=== PATIENT | female | born 1960 | race Caucasian/White ===

== ENCOUNTER → 2018-04-19 09:33 | Outpatient (CLI) | payer BC, SELFPAY ==
[2018-04-19 12:23] LABS: Absolute Lymphocyte Count 1.96 X10^3/ul (0.83-4.51); Absolute Neutrophil Count 3.4 X10^3/uL (2.0-7.7); Basophil# 0.03 X10^3/uL; Basophil% 0.5 % (0-1); Eosinophil# 0.15 X10^3/uL; Eosinophils% 2.5 % (0-5); Hematocrit 44.1 % (37-47); Hemoglobin 14.5 g/dl (12.0-15.0); Lymphocyte # 1.96 X10^3/ul (4.0); Mean Corp Hgb Conc 32.9 g/gl (32-36); Mean Corpuscular Hgb 27.7 pg (27.0-32.0); Mean Corpuscular Volume 84.3 fL (81-99); Mean Platelet Vol. 10.9 fl (6.2-12.0); Monocyte% 6.7 % (0-10); Neutrophil % 57.3 % (47-70); Platelet Count 237 K/mm3 (150-450); RBC Distribution Width SD 46.3 fl (35.1-43.9); Red Blood Count 5.23 M/mm3 (4.2-5.4); White Blood Count 5.9 K/mm3 (4.4-11.0)
[2018-04-19 12:25] LABS: POSITIVE COUNT NO; POSITIVE DIFFERENTIAL NO; POSITIVE MORPHOLOGY NO
[2018-04-19 12:48] LABS: Anion Gap 10 (5-15); BUN 22 mg/dL (7-18); BUN/Creat Ratio 25.3 RATIO (10-20); Calcium,Total 8.8 mg/dL (8.5-10.1); Chloride 108 mmol/L (98-107); Cholesterol 208 mg/dL (200); Creatinine, Serum 0.87 mg/dL (0.55-1.02); EST Glomerular Filtration Rate 71 mL/min (>60); Est Glom Filt Rate - Afr Amer 86 mL/min (>60); Glucose 97 mg/dL (74-106); High Density Lipoprotein 46 mg/dL; Potassium 4.2 mmol/L (3.5-5.1); Sodium Level 141 mmol/L (136-145); Thyroid Stim Hormone (TSH) 2.01 uIU/mL (0.358-3.74); Triglycerides 120 mg/dL; Very Low Density Lipoprotein 24 mg/dL (5-40)
== END ==
PROVIDERS: Family Provider Family Medicine; PCP Family Medicine; Visit Provider Family Medicine
DX: E78.00 Pure hypercholesterolemia, unspecified (principal); R53.83 Other fatigue; R94.6 Abnormal results of thyroid function studies
CPT/HCPCS: 36415; 80048; 80061; 84443; 85025

== ENCOUNTER → 2018-09-23 12:55 | Outpatient (CLI) | payer BC, SELFPAY ==
--- NOTE | 2018-09-23 12:58 | BI_ITS ---
MAMMOGRAPHY - BILATERAL SCREENING 3-D CHANDAN SYNTHESIS REASON FOR EXAM: Female, 58 years old. Bilateral Screening 3-D tomosynthesis PERTINENT HISTORY: Personal history of breast cancer at age 51 status post lumpectomy. History of left excisional biopsy. TECHNIQUE: 2-D mammograms and 3-D Chandan synthesis of the breast (s) were performed. CAD was performed. COMPARISON: August 17, 2017, May 06, 2016 FINDINGS: The breast composition is composed of scattered fibroglandular density. There are stable normal-appearing lymph nodes in both axillae. Scattered benign calcifications are seen. No dense spiculated masses or suspicious microcalcifications are identified. No architectural distortion is identified. There is no skin thickening or retraction. There has been no significant change since the prior study. BI/SCREENING MAMM (CAD), BILAT IMPRESSION: No mammographic signs of malignancy. Routine yearly mammograms recommended. ASSESSMENT CATEGORY: BIRADS Category 2: Benign. A letter regarding these results will be sent to the patient by the facility within 30 days. FOLLOW UP RECOMMENDATION: Yearly follow up mammogram recommended. (A) Approximately 10% of breast cancers are not detected by mammography. A normal mammogram should not delay biopsy of a clinically suspicious abnormality. Electronically Signed: Sai Dickerson MD at 11:15 EST , Service support ,
== END ==
PROVIDERS: Family Provider Family Medicine; PCP Family Medicine; Visit Provider Nurse Practitioner Women's Health
DX: Z12.31 Encounter for screening mammogram for malignant neoplasm of breast (principal)
CPT/HCPCS: 77063; 77067

== ENCOUNTER → 2018-10-25 11:26 | Outpatient (CLI) | payer BC, SELFPAY ==
[2018-10-03 11:35] VITALS: BMI 28.8
--- NOTE | 2018-10-25 11:36 | RAD_ITS ---
STUDY: X-RAY - LEFT KNEE REASON FOR EXAM: Female, 58 years old. Knee pain. TECHNIQUE: 4 view(s) of the knee. COMPARISON: None. FINDINGS: Normal visualized distal femur. Normal visualized proximal tibia and fibula. Normal proximal tibiofibular articulation. There is mild degenerative arthrosis of the medial femorotibial compartment. Normal lateral femorotibial compartment. There is mild degenerative arthrosis of the patellofemoral articulation. There is lateral patellar tilt. The soft tissue structures are unremarkable. RAD/Knee 4 or More Views IMPRESSION: Mild degenerative changes. Electronically Signed: Scarlet Dorsey MD at 22:34 EST Tel , Service support ,
== END ==
PROVIDERS: Family Provider Family Medicine; PCP Family Medicine; Referring Provider Family Medicine; Visit Provider Family Medicine
DX: M25.562 Pain in left knee (principal)
CPT/HCPCS: 73564

== ENCOUNTER 2019-01-04 09:30 | Outpatient (RCR) | payer BC, SELFPAY ==
[2018-10-03 11:35] VITALS: BMI 28.8
--- NOTE | 2018-11-04 16:51 | HP.PTEVAL_ITS ---
Patient's Visit Information MICHELLE HERNÁNDEZ is a 58 year old F referred to Physical Therapy by Nadeem Sutton MD with a diagnosis of LEFT KNEE PAIN. SUSPECT SMALL POSTEROMEDIAL MENISCAL TEAR. WEAK QUAD.. Date of Evaluation: 11/04/18 Physical Therapist: Stephania Wilde, PT, Cert MDT - Visit Plan Frequency: 2-3x /Week Duration: 4-6 Weeks Plan: MODALITIES NEEDED FOR LEFT KNEE PAIN. POSTURE CORRECTION/STRENGTHENING, INSTRUCTION IN APPROPRIATE BODY MECHANICS AND ACTIVITY MODIFICATIONS. DLS STARTING WITH A NEUTRAL SPINE PROGRESSING ROM TOLERATED. MAURY LE ROM, STRETCHING AND STRENGTHENING. HEP INSTRUCTION. - Subjective Findings: Work/Leisure: [employer]. ABOUT 25 HOURS A WEEK. MOSTLY SITTING. 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 Disability: NO. Present symptoms: LEFT LATERAL AND POSTERIOR KNEE PAIN. LEFT THIGH AND CALF PAIN. PATIENT DENIES NUMBNESS AND TINLGING. NO FOOT SX'S. MAYBE SOME LEFT HIP PAIN. NO LOW BACK PAIN. Present since: AUG 28 2018 - BUT ABOUT A MONTH PRIOR (JUL 2018) MAURY KNEES WERE FEELING UNSTABLE AND HAVING SOME SHARP PAINS WITH SHIFTING IN KNEES. Pain Scale: WORST 8/10, LEAST 1/10. Currently: 1/10. CURRENTLY STAYING THE SAME. Commenced as a result of: TWISTING TO GET LUGGAGE ON AIRPLANE. Symptoms at onset: MAURY KNEE PAIN AND INSTABILITY. Worse: USING LEFT LEG TO BRACE, ANY STRANGE TURNING OR TWISIING, WALKING ON TREADMILL, CARRYING THE GRANDBADIES, WALKING ON UNEVEN GROUND, GETTING IN AND OUT OF CAR, BALANCING ON LLE - SHAVING LEGS, PROLONGED SITTING CAUSES BACK TIGHTNESS AND SOMETIMES KNEE PAIN, CROSSING LEGS, INITIATING GAIT AFTER SITTING. Better: ICE, ALEVE, CHANGE OF POSITION,. Disturbed sleep: YES. Previous history/Previous treatment: PT FOR TORN UNREPAIRED ACL RIGHT ABOUT 20 YEARS AGO FROM SKIING ACCIDENT. NO OTHER RECENT KNEE HISTORY EXCEPT DRAINING OF LEFT BAKERS CYST 10/31/[address] SUTTON - MAYBE TEMPORARY RELIEF. HISTORY OF LOW BACK ISSUES FOR ABOUT 20 YEARS - EPISODIC LBP SINCE. DX WITH DDD. WHENEVER GETS TIGHT IN LOW BACK GOES TO CHIROPRACTOR - 20 YEAR HISTORY OF CHIROPRACTIC ADJUSTMENTS OFF AND ON. ALSO HISTORY OF HEEL SPURS THAT PATIENT RELATES TO HER LOW BACK PROBLEMS. NO BACK OR KNEE SURGERY, NO BACK OR KNEE INJECTIONS, NO BACK PT. HISTORY OF LEFT LE SCIATICA. Coughing/sneezing/straining: NEGATIVE. Gait: PATIENT REPORTS SHE IS WALKING MORE CAUSIOUSLY AND TAKING SHORTER STEPS. NO AD'S. MORE DEPENDENT ON HR'S WITH STEPS. Difficulty initiating urinatin: NO. Accidents: FALL SKIING 20 YEARS AGO. Unexplained weight loss: NO. Imaging: LEFT KNEE X-RAY SHOWING ARTHRITIS - MILD DEGENERATIVE CHANGES - SEE [facility] EMR. NO RECENT LUMBAR IMAGING. PMH: HYPOTHROIDISM. Recent major surgery: HYSTERECTOMY, LUMPECTOMY FOR PRECANCEROUS TUMOR - NO FURTHER TREATMENT. PLOF (Prior Level of Function): UNLIMITED. GOAL: TO BE ABLE TO HIKE ETC IN [place] IN DECEMBER 2018 - Objective Sitting/Standing Posture: POOR. Lordosis: REDUCED. Lateral shift: NO. Relevant shift: N/A. Active Correction of posture: BETTER. REPRODUCIBLE DECREASE OF LLE SX'S IN BACK AND SIDE OF LEFT KNEE WITH POSTURE CORRECTION. Other Observations: Motor deficit: RIGHT LE 5/5 WITH MMT EXCEPT HIP 4/5. LEFT: HIP 4-/5, KNEE EXT 3-/5, KNEE FLEX 4-/5, ANKLE 5/5, EHL 5/5. Sensory deficit: DECREASED LIGHT TOUCH LEFT LATERAL THIGH, LEG AND FOOT COMPARED TO RIGHT. ROM deficit: FULL MAURY KNEE ROM EXCEPT LEFT KNEE EXT -2 TO 3 DEG. Reflexes: 2/3 MAURY LE'S. Dural Signs: POSITIVE LLE. Lumbar mvmt loss: flex - NIL - LEFT KNEE CATCH ON RETURN. ext - MIN. R SG - MIN. L SG - MOD - C/O INCREASED LLE PAIN/PRESSURE. Core strength: POOR. Palpation: MILD TENDERNESS [id number] REGION. MILD POSTERIOR LEFT KNEE SWELLING. NO ACUTE TENDERNESS WITH LEFT KNEE PALPATION - Goals Goal 1:: DECREASE C/O LEFT KNEE PAIN Goal Time Frame: 4-6 Weeks Goal 2:: IMPROVE STANDING, WALKING, BENDING, LIFTING, TWISTING, ADL, WORK AND SLEEP FUNCTION Goal Time Frame: 4-6 Weeks Goal 3:: INSTRUCT IN PROPHYLAXIS Goal Time Frame: 4-6 Weeks - Rehabilitation Potential Rehabilitation Potential: Fair - Anticipated Interventions Patient/Client Instruction: Educate patient on: Condition, Plan of Care, Risk Factors, Benefits of Fitness Program For the Purpose of:: To improve self management Therapeutic Exercise to Include: Strength training, Body mechanics, Postural training, Flexibilty training, Gait and locomotor training, Passive ROM, Active ROM, Dynamic Lumbar Stabilization For the Purpose of:: To decrease pain, To increase ROM, To improve muscle performance and motor function, To increase tolerance to activity/condition/position, To improve ability of physical actions for home/community/work/leisure, To improve gait and locomotor functions TENS: Yes Cryotherapy (ice pack, ice massage): Yes Thermo therapy (hot pack): Yes Ultrasound (thermal/non thermal): Yes For the Purpose of:: To decrease pain, To decrease swelling/inflammation, To increase ROM, To improve nutrient delivery to tissue Thank you for the opportunity to evaluate your patient. For Medicare and Medicare HMO plans, please review the plan of care and approve it. It will need to be FAXED BACK to us at [phone] for Medicare purposes. For Medicare only, by signing this I certify the plan of care. Please let me know if there are questions or concerns regarding this plan of care. Physician Signature: Date:
--- NOTE | 2018-12-05 17:17 | HP.PTREVAL_ITS ---
Nadeem Sutton MD, It has been my pleasure to treat MICHELLE HERNÁNDEZ over the last 12 visits for LEFT KNEE PAIN. SUSPECT SMALL POSTEROMEDIAL MENISCAL TEAR. WEAK QUAD.. Please see the progress note below for an update on the physical therapy plan of care! Subjective: PATIENT REPORTS HER KNEE HASN'T SLIPPED IN TWO WEEKS AND SHE IS GAINING CONFIDENCE IN HER KNEE. MUCH LESS CONSTANT LEFT LATERAL KNEE PAIN. PAIN IN THE BACK OF HER KNEE IS BETTER TOO AND COMES AND GOES NOW. PATIENT REPORTS THAT IT IS HUGE THAT SHE CAN GET IN AND OUT OF THE CAR BETTER AND GETTING UP FROM HER DESK AT WORK IS BETTER. THERE IS STILL PAIN BEHIND THE KNEE AND TO THE SIDE WITH ACTIVITY. SOMETIMES PAIN AND TIGHTNESS IN CALF WITH A LOT OF ACTIVITIY TOO. TIGHTNESS IN THIGH CONTINUES TOO. SHE REPORTS SHE CAN NOT RUN OR WALK ON ANYTHING UNEVEN FOR FEAR OF KNEE GIVING OUT. HAS NOT BEEN DOING BARN CHORES. CAN NOT DRIVE MORE THAN AN HOUR AND 45 MINUTES - EVERYTHING TIGHTENED UP AND THE KNEE HURT. NO SWELLING IN KNEE THIS MORNING AND SLEPT GOOD LAST NIGHT. PATIENT REPORTS SHE WANTS TO GET HER STRENGTH BACK IN HER LEG. PATIENT REPORTS IT IS EASY TO ENGAGE HER CORE NOW AND USE GOOD POSTURE. PATIENT REPORTS WHEN SHE ENGAGES HER CORE AND CORRECTS HER POSTURE SHE FEELS BETTER IN HER KNEES AND FEET. SHE REPORTS HER CORE STABILITY IS BETTER. PATIENT REPORTS SHE IS PAINFREE 75% OF THE DAY IN HER BACK AND LEGS INCLUDING KNEE. INCREASED PAIN IN THE EVENING AND BETTER IN THE MORNING. SHE REPORTS 30% MORE CONFIDENCE IN HER KNEE. PATIENT REPORTS THE POOL WAS CHALLENGING AND SHE LIKED IT. Objective/Function: THIS PATIENT IS MAKING PROGRESS TOWARD ALL SET PT GOALS BUT STILL HAS SIGNIFICANT WEAKNESS IN THE LLE AND IS STILL SIGNIFICANTLY LIMITING HER NORMAL DAILY ACTIVITIES. RECOMMEND FOLLOW UP WITH DR. SUTTON FOR RE- ASSESSMENT AND FURTHER PT PLAN BELOW. UPON EXAM TODAY: Motor deficit: RIGHT LE 5/5 WITH MMT EXCEPT HIP 4/5. LEFT: HIP 4/5, KNEE EXT 4-/5, KNEE FLEX 5/5, ANKLE 5/5, EHL 5/5. Sensory deficit: PATIENT IS REPORTING INCREASED SENSATIVITY OF THE LEFT LATERAL THIGH, LEG AND FOOT COMPARED TO RIGHT TODAY. ROM deficit: FULL MAURY KNEE ROM AND FULL LEFT KNEE EXT NOW. Dural Signs: NEGATIVE MAURY LE'S. Lumbar mvmt loss: flex - NIL - STRETCH LEFT KNEE. ext - MIN. R SG - MIN. L SG - MOD - C/O INCREASED LLE PAIN/PRESSURE. Core strength: POOR. Palpation: NO TENDERNESS [id number] REGION TODAY. MILD POSTERIOR LEFT KNEE TENDERNESS AND SWELLING. Plan Plan: MODALITIES NEEDED FOR LEFT KNEE PAIN. POSTURE CORRECTION/STRENGTHENING, INSTRUCTION IN APPROPRIATE BODY MECHANICS AND ACTIVITY MODIFICATIONS. DLS STARTING WITH A NEUTRAL SPINE PROGRESSING ROM TOLERATED. MAURY LE ROM, STRETCHING AND STRENGTHENING. HEP INSTRUCTION. Goals Goal 1:: DECREASE C/O LEFT KNEE PAIN Goal Time Frame: 4-6 Weeks Goal Progress: Progressing Goal 2:: IMPROVE STANDING, WALKING, BENDING, LIFTING, TWISTING, ADL, WORK AND SLEEP FUNCTION Goal Time Frame: 4-6 Weeks Goal Progress: Progressing Goal 3:: INSTRUCT IN PROPHYLAXIS Goal Time Frame: 4-6 Weeks Goal Progress: Progressing Anticipated Interventions Patient/Client Instruction: Educate patient on: Condition, Plan of Care, Risk Factors, Benefits of Fitness Program For the Purpose of:: To improve self management Therapeutic Exercise to Include: Strength training, Body mechanics, Postural training, Flexibilty training, Gait and locomotor training, Passive ROM, Active ROM, Dynamic Lumbar Stabilization For the Purpose of:: To decrease pain, To increase ROM, To improve muscle performance and motor function, To increase tolerance to activity/condition/position, To improve ability of physical actions for home/community/work/leisure, To improve gait and locomotor functions TENS: Yes Cryotherapy (ice pack, ice massage): Yes Thermo therapy (hot pack): Yes Ultrasound (thermal/non thermal): Yes For the Purpose of:: To decrease pain, To decrease swelling/inflammation, To increase ROM, To improve nutrient delivery to tissue Please do not hesitate to contact me at [phone] by phone or if you have questions or concerns regarding this new plan of care! Sincerely, Stephania Wilde, PT, Cert MDT
--- NOTE | 2019-01-04 10:27 | HP.PTDCSUM_ITS ---
HP - PT D/C Summary It has been my pleasure to treat MICHELLE HERNÁNDEZ under orders from Nadeem Sutton MD, for the diagnosis of LEFT KNEE PAIN. SUSPECT SMALL POSTEROMEDIAL MENISCAL TEAR. WEAK QUAD. for a total of 19 visit(s). Discharge Date: 01/04/19 Please see the following information for a summary of their discharge status. - Subjective Subjective: PATIENT REPORTS HER STRENGTH HAS IMPROVED DRASTICALLY AND SHE IS ABOUT 90% BACK TO NORMAL EXCEPT TWEAKING HER BACK WHICH IS NORMAL FOR HER. PATIENT IS HAPPY TO REPORT SHE IS ABLE TO PUSH OFF OF HER LEFT LEG KNOW WITHOUT PAIN. RG'T WITH DR. SUTTON NEXT WEEK FOR KNEE. PATIENT REPORTS SHE HAS HER BAND AND CAN DO HER HOME EX'S NOW AND DOES NOT THINK SHE IS GOING TO GET A MEMBERSHIP YET. ALSO KNOWS HER POOL EX'S. - Pain LOW BACK Pain Intensity (Out of 10): 4 LEFT THIGH Pain Intensity (Out of 10): 0 LEFT KNEE Pain Intensity (Out of 10): 0 LEFT CALF Pain Intensity (Out of 10): 0 L hip Pain Intensity (Out of 10): 0 - Overall Improvement % Improvement: 90 - Objective Objective/Function: THIS PATIENT HAS MADE GREAT PROGRESS TOWARD ALL SET PT GOALS. UPON EXAM TODAY: Motor deficit: RIGHT LE 5/5 WITH MMT EXCEPT HIP 4/5. LEFT: HIP 4/5, KNEE EXT 4/5, KNEE FLEX 5/5, ANKLE 5/5. Sensory deficit: MILD DECREASED LIGHT TOUCH OF LEFT LATERAL THIGH AND KNEE REPORTED WITH TESTING TODAY. ROM deficit: FULL MAURY KNEE ROM AND FULL LEFT KNEE EXT. Dural Signs: NEGATIVE MAURY LE'S. Lumbar mvmt loss: flex - MIN - A LITTLE TIGHT. ext - MIN. R SG - MIN. L SG - MIN. Core strength: FAIR - Goals Goal 1:: DECREASE C/O LEFT KNEE PAIN Goal Progress: Goal Met Goal 2:: IMPROVE STANDING, WALKING, BENDING, LIFTING, TWISTING, ADL, WORK AND SLEEP FUNCTION Goal Progress: Goal Met Goal 3:: INSTRUCT IN PROPHYLAXIS Goal Progress: Progressing - Plan Plan: D/C TO [facility] AND FOLLOW UP WITH PATIENT AGREEABLE - D/C Information If there are questions or concerns regarding this patient's physical therapy, please feel free to call me at [phone]. Thank you for the referral of this patient. Sincerely, Stephania Wilde, PT, Cert MDT
== END 2019-01-04 18:59 | disposition home or self-care (01) ==
LOC: PT 09:30
PROVIDERS: Family Provider Family Medicine; PCP Family Medicine; Referring Provider Family Medicine; Visit Provider Family Medicine
DX: M25.562 Pain in left knee (principal); M62.81 Muscle weakness (generalized)
CPT/HCPCS: 97110; 97113; 97162; 97530

== ENCOUNTER → 2019-03-14 10:36 | Outpatient (CLI) | payer BC, SELFPAY ==
[2018-10-03 11:35] VITALS: BMI 28.8
[2019-03-14 13:06] LABS: Anion Gap 13 (5-15); BUN 12 mg/dL (7-18); BUN/Creat Ratio 14.4 RATIO (10-20); Calcium,Total 8.9 mg/dL (8.5-10.1); Chloride 106 mmol/L (98-107); Creatinine, Serum 0.83 mg/dL (0.55-1.02); EST Glomerular Filtration Rate 75 mL/min (>60); Est Glom Filt Rate - Afr Amer 90 mL/min (>60); Glucose 99 mg/dL (74-106); Potassium 4.7 mmol/L (3.5-5.1); Sodium Level 140 mmol/L (136-145); Thyroid Stim Hormone (TSH) 1.06 uIU/mL (0.358-3.74)
== END ==
PROVIDERS: Family Provider Family Medicine; PCP Family Medicine; Referring Provider Family Medicine; Visit Provider Family Medicine
DX: I10 Essential (primary) hypertension (principal); E03.9 Hypothyroidism, unspecified
CPT/HCPCS: 36415; 80048; 84443

== ENCOUNTER → 2019-09-25 09:55 | Outpatient (CLI) | payer BC, SELFPAY ==
[2018-10-03 11:35] VITALS: BMI 28.8
--- NOTE | 2019-09-25 09:56 | BI_ITS ---
MAMMOGRAPHY - BILATERAL SCREENING 3-D TOMOSYNTHESIS REASON FOR EXAM: Female, 59 years old. P/H AGE 51, STOPPED HRT IN 2011 4 YR TOTAL USE -- GAINED 10# -- LT LUMPECTOMY 2011 NO F/U TX, PT C/O SORENESS X 2-3 MONTHS LOWER LATERAL QUAD -- LT EXC BX 2009 PERTINENT HISTORY: No significant family history. TECHNIQUE: 2-D mammograms and 3-D Tomosynthesis of the breast (s) were performed. CAD was performed. COMPARISON: September 23, 2018. FINDINGS: The breast composition is composed of scattered fibroglandular density. Scattered benign calcifications are seen. No dense spiculated masses or suspicious microcalcifications are identified. No architectural distortion is identified. There is no skin thickening or retraction. There has been no significant change since the prior study. BI/SCREEN MAMM (CAD) W/CHANDAN BILAT IMPRESSION: No mammographic signs of malignancy. Routine yearly mammograms recommended. ASSESSMENT CATEGORY: BIRADS Category 1: Negative. A letter regarding these results will be sent to the patient by the facility within 30 days. FOLLOW UP RECOMMENDATION: Yearly follow up mammogram recommended. (A) Approximately 10% of breast cancers are not detected by mammography. A normal mammogram should not delay biopsy of a clinically suspicious abnormality. Electronically Signed: Jesus Prado MD at 12:11 EST , Service support ,
== END ==
PROVIDERS: Family Provider Family Medicine; PCP Family Medicine; Referring Provider Nurse Practitioner Women's Health; Visit Provider Nurse Practitioner Women's Health
DX: Z12.31 Encounter for screening mammogram for malignant neoplasm of breast (principal)
CPT/HCPCS: 77063; 77067

== ENCOUNTER → 2020-02-06 09:34 | Outpatient (CLI) | payer BC, SELFPAY ==
[2019-10-19 08:39] VITALS: BMI 28.8
[2020-02-06 12:18] LABS: Cholesterol 249 mg/dL (200); High Density Lipoprotein 37 mg/dL; Thyroid Stim Hormone (TSH) 1.63 uIU/mL (0.358-3.74); Triglycerides 287 mg/dL; Very Low Density Lipoprotein 57 mg/dL (5-40)
== END ==
PROVIDERS: PCP Family Medicine; Visit Provider Family Medicine
DX: E78.00 Pure hypercholesterolemia, unspecified (principal); E03.9 Hypothyroidism, unspecified
CPT/HCPCS: 36415; 80061; 84443

== ENCOUNTER 2020-12-06 14:11 | Outpatient (RCR) | payer BC, SELFPAY ==
[2019-10-19 08:39] VITALS: BMI 28.8
[2020-12-06] MEDS: COVID-19 VACC, MRNA(PFIZER)/PF 30 MCG/0.3 ML SYRINGE IM (15:14)
[2020-12-27] MEDS: COVID-19 VACC, MRNA(PFIZER)/PF 30 MCG/0.3 ML SYRINGE IM (15:03)
== END 2020-12-06 23:59 ==
LOC: IMMUN 14:11
PROVIDERS: PCP Family Medicine; Referring Provider Family Medicine; Visit Provider Family Medicine
DX: Z23 Encounter for immunization (principal)
CPT/HCPCS: 0001A; 0002A; 91300

== ENCOUNTER → 2021-02-05 10:08 | Outpatient (CLI) | payer BC, SELFPAY ==
[2019-10-19 08:39] VITALS: BMI 28.8
[2021-02-05 12:51] LABS: T4 Free Direct 1.04 ng/dL (0.76-1.46); Thyroid Stim Hormone (TSH) 1.55 uIU/mL (0.358-3.74)
== END ==
PROVIDERS: PCP Family Medicine; Referring Provider Family Medicine; Visit Provider Family Medicine
DX: E03.9 Hypothyroidism, unspecified (principal)
CPT/HCPCS: 36415; 84439; 84443

== ENCOUNTER → 2021-02-07 10:35 | Outpatient (CLI) | payer BC, SELFPAY ==
[2019-10-19 08:39] VITALS: BMI 28.8
--- NOTE | 2021-02-07 10:35 | BI_ITS ---
MAMMOGRAPHY - BILATERAL SCREENING REASON FOR EXAM: Female, 60 years old. Routine annual screening examination. PERTINENT HISTORY: Personal history of breast cancer. Prior left lumpectomy. TECHNIQUE: Digital bilateral breast chandan (3D mammographic acquisition) in the CC and MLO projections. 2-D mediolateral oblique (MLO) and craniocaudad (CC) views of both breasts were obtained. CAD: Full Field Digital Mammography with Computer Added Detection was performed. COMPARISON: Comparison is made with prior study dated 09/25/2019 and 09/23/2018. FINDINGS: Breast Composition: The breasts are heterogeneously dense, which may obscure small masses. There are no dominant masses or suspicious calcifications. The patient status post lumpectomy in the retroareolar region of the left breast. Stable postoperative changes. Stable benign-appearing bilateral axillary lymph nodes. No other significant abnormalities are identified. There has been no significant change since the prior study. BI/SCRN MAMM (CAD)W/CHANDAN BILAT IMPRESSION: Stable bilateral screening mammogram. Yearly follow-up mammogram recommended. (A) ASSESSMENT CATEGORY: BIRADS Category 2: Benign. A letter regarding these results will be sent to the patient by the facility within 30 days. Approximately 10% of breast cancers are not detected by mammography. A normal mammogram should not delay biopsy of a clinically suspicious abnormality. [id number] Electronically Signed: Mayito Del Rosario MD at 12:19 EDT , Service support ,
== END ==
PROVIDERS: PCP Family Medicine; Referring Provider Obstetrics & Gynecology; Visit Provider Obstetrics & Gynecology
DX: Z12.31 Encounter for screening mammogram for malignant neoplasm of breast (principal)
CPT/HCPCS: 77063; 77067

== ENCOUNTER → 2021-08-11 09:53 | Outpatient (CLI) | payer BC, OTHER, SELFPAY ==
[2021-08-11 12:26] LABS: Anion Gap 5 (5-15); BUN 13 mg/dL (7-18); BUN/Creat Ratio 13.6 RATIO (10-20); Calcium,Total 9.4 mg/dL (8.5-10.1); Chloride 107 mmol/L (98-107); Cholesterol 239 mg/dL (200); Creatinine, Serum 0.96 mg/dL (0.55-1.02); EST Glomerular Filtration Rate 63 mL/min (>60); Est Glom Filt Rate - Afr Amer 76 mL/min (>60); Glucose 105 mg/dL (74-106); High Density Lipoprotein 38 mg/dL; Potassium 4.1 mmol/L (3.5-5.1); Sodium Level 138 mmol/L (136-145); Triglycerides 228 mg/dL; Very Low Density Lipoprotein 46 mg/dL (5-40)
== END ==
PROVIDERS: PCP Family Medicine; Referring Provider Family Medicine; Visit Provider Family Medicine
DX: R73.01 Impaired fasting glucose (principal); E78.00 Pure hypercholesterolemia, unspecified
CPT/HCPCS: 36415; 80048; 80061

== ENCOUNTER → 2022-02-09 | Outpatient (CLI) | payer OTHER, SELFPAY ==
--- NOTE | 2022-02-09 10:27 | BI_ITS ---
MAMMOGRAPHY - BILATERAL SCREENING REASON FOR EXAM: Female, 61 years old. Routine annual screening examination. PERTINENT HISTORY: Personal history of breast cancer. Prior left lumpectomy. TECHNIQUE: Digital bilateral breast chandan (3D mammographic acquisition) in the CC and MLO projections. 2-D mediolateral oblique (MLO) and craniocaudad (CC) views of both breasts were obtained. CAD: Full Field Digital Mammography with Computer Added Detection was performed. COMPARISON: Comparison is made with prior study dated 02/07/2021 and 09/25/2019. FINDINGS: Breast Composition: The breasts are heterogeneously dense, which may obscure small masses. There are no dominant masses or suspicious calcifications. Once again, the patient is status post lumpectomy in the retroareolar region of the left breast. Stable postoperative changes and scarring are seen. Stable appearance of the bilateral axillary lymph nodes. No other significant abnormalities are identified. There has been no significant change since the prior study. BI/SCRN MAMM (CAD)W/CHANDAN BILAT IMPRESSION: Stable bilateral screening mammogram. Yearly follow-up mammogram recommended. (A) ASSESSMENT CATEGORY: BIRADS Category 2: Benign. A letter regarding these results will be sent to the patient by the facility within 30 days. Approximately 10% of breast cancers are not detected by mammography. A normal mammogram should not delay biopsy of a clinically suspicious abnormality. [id number] Electronically Signed: Mayito Del Rosario MD at 11:10 EDT ,
== END | disposition home or self-care (01) ==
LOC: OPBI 10:25
PROVIDERS: PCP Family Medicine; Visit Provider Nurse Practitioner Women's Health
DX: Z12.31 Encounter for screening mammogram for malignant neoplasm of breast (principal)
CPT/HCPCS: 77063; 77067

== ENCOUNTER → 2022-08-25 | Outpatient (CLI) | payer OTHER, SELFPAY ==
[2022-08-25 12:40] LABS: Erythrocyte Sedimentation Rate 17 mm/hr (0-30)
[2022-08-25 12:42] LABS: Absolute Lymphocyte Count 1.87 X10^3/uL (0.83-4.51); Absolute Neutrophil Count 3.2 X10^3/uL (2.0-7.7); Basophil# 0.07 X10^3/uL; Basophil% 1.2 % (0-1); Eosinophil# 0.17 X10^3/uL; Eosinophils% 2.9 % (0-5); Hematocrit 45.6 % (37-47); Hemoglobin 14.9 g/dL (12.0-15.0); Lymphocyte # 1.87 X10^3/ul (0.83-4.51); Mean Corp Hgb Conc 32.7 g/dL (32-36); Mean Corpuscular Hgb 27.3 pg (27.0-32.0); Mean Corpuscular Volume 83.7 fL (81-99); Mean Platelet Vol. 10.6 fl (6.2-12.0); Monocyte% 8.6 % (0-10); NRBC Flagged by Analyzer 0 % (0-5); Neutrophil # 3.21 X10^3/uL (2.7-7.7); Platelet Count 255 K/mm3 (150-450); Red Blood Count 5.45 M/mm3 (4.2-5.4); White Blood Count 5.8 K/mm3 (4.4-11.0)
[2022-08-25 12:56] LABS: Vitamin B12 976 pg/mL (211-911); Vitamin D,25 Hydroxy 44.7 ng/mL
[2022-08-25 13:23] LABS: ALB/GLOB Ratio 1.1 RATIO (0.9-2.4); AST(SGOT) 27 U/L (15-37); Alanine Aminotransfer ALT/SGPT 40 U/L (13-56); Albumin, Serum 3.9 g/dL (3.2-5.0); Alkaline Phosphatase 97 U/L (45-117); Anion Gap 7 (5-15); BUN 20 mg/dL (7-18); BUN/Creat Ratio 23.5 RATIO (10-20); CRP < 2.90 mg/L (0.0-3.0); Calcium,Total 9.5 mg/dL (8.5-10.1); Chloride 108 mmol/L (98-107); Cholesterol 253 mg/dL (200); Creatinine, Serum 0.85 mg/dL (0.55-1.02); EST Glomerular Filtration Rate 72 mL/min (>60); Est Glom Filt Rate - Afr Amer 87 mL/min (>60); Ferritin 109 ng/mL (8-252); Globulin 3.7 g/dL (2.2-4.2); Glucose 102 mg/dL (74-106); High Density Lipoprotein 49 mg/dL; Iron 79 ug/dL (50-170); Potassium 4.1 mmol/L (3.5-5.1); Protein, Total 7.6 g/dL (6.4-8.2); Rheumatoid Factor < 10.0 IU/mL (<15); Sodium Level 139 mmol/L (136-145); T4 Free Direct 1.18 ng/dL (0.76-1.46); Triglycerides 140 mg/dL; Uric Acid 6.2 mg/dL (2.6-6.0); Very Low Density Lipoprotein 28 mg/dL (5-40)
[2022-08-26 16:23] LABS: ANTINUCLEAR ANTIBODIES DIRECT Negative (Negative)
== END | disposition home or self-care (01) ==
LOC: MFPLAB 10:48
PROVIDERS: PCP Family Medicine; Referring Provider Family Medicine; Visit Provider Family Medicine
DX: M25.50 Pain in unspecified joint (principal); L65.9 Nonscarring hair loss, unspecified; E03.9 Hypothyroidism, unspecified
CPT/HCPCS: 36415; 80053; 80061; 82306; 82607; 82728; 83540; 84439; 84443; 84550; 85025; 85652; 86038; 86140; 86431

== ENCOUNTER → 2023-03-15 | Outpatient (CLI) | payer OTHER, SELFPAY ==
--- NOTE | 2023-03-15 15:31 | BI_ITS ---
MAMMOGRAPHY - BILATERAL SCREENING REASON FOR EXAM: Female, 62 years old. Routine annual screening examination. PERTINENT HISTORY: Personal history of breast cancer status post left lumpectomy in 2012. TECHNIQUE: Digital bilateral breast chandan (3D mammographic acquisition) in the CC and MLO projections. 2-D mediolateral oblique (MLO) and craniocaudad (CC) views of both breasts were obtained. CAD: Full Field Digital Mammography with Computer Added Detection was performed. COMPARISON: Mammogram from 02/09/2022, 02/07/2021. FINDINGS: Breast Composition: The breasts are heterogeneously dense, which may obscure small masses. There are no dominant masses or suspicious calcifications. Stable left breast lumpectomy postoperative changes. Stable benign-appearing small bilateral axillary lymph nodes. No other significant abnormalities are identified. There has been no significant change since the prior study. BI/SCRN MAMM (CAD)W/CHANDAN BILAT IMPRESSION: Stable bilateral screening mammogram. Yearly follow-up mammogram recommended. (A) ASSESSMENT CATEGORY: BIRADS Category 2: Benign. A letter regarding these results will be sent to the patient by the facility within 30 days. Approximately 10% of breast cancers are not detected by mammography. A normal mammogram should not delay biopsy of a clinically suspicious abnormality. Electronically Signed: Marcos Fleming DO at 12:52 EDT ,
== END | disposition home or self-care (01) ==
LOC: OPBI 15:30
PROVIDERS: PCP Family Medicine; Referring Provider Nurse Practitioner Women's Health; Visit Provider Nurse Practitioner Women's Health
DX: Z12.31 Encounter for screening mammogram for malignant neoplasm of breast (principal)
CPT/HCPCS: 77063; 77067

== ENCOUNTER → 2023-10-15 | Outpatient (CLI) | payer OTHER, SELFPAY ==
--- NOTE | 2023-10-15 13:10 | CT_ITS ---
STUDY: CT CHEST WITHOUT CONTRAST REASON FOR EXAM: Female, 63 years old. Hypercholesteremia, LIMITED OVER READ ONLY RADIATION DOSAGE (If Supplied By Facility): CTDIvol = ( 12.19 ) mGy, DLP = ( 195.04 ) mGycm TECHNIQUE: Transaxial imaging was performed without the administration of intravenous contrast material. Individualized dose optimization techniques were used for this CT. COMPARISON: No relevant priors. FINDINGS: CHEST The lungs are normal. There is no demonstrated pleural abnormality. There are calcifications of the coronary arteries. Minimal degree of pericardial thickening. There are small lymph nodes within the mediastinum, which are normal in size and morphology most compatible with reactive lymph hyperplasia. Normal hilar regions. Normal unenhanced pulmonary arteries. Normal aorta arch and descending thoracic aorta. Normal osseous structures. Small cyst seen in the dome of the right lobe of the liver. CT/Limited Chest CT Cardiac Only IMPRESSION: Coronary artery calcification. Minimal degree of pericardial thickening. Electronically Signed: Mayito Del Rosario MD at 9:48 EST ,
--- OUTSIDE RECORDS SUMMARY | 2023-10-15 13:20 | XMS RPT_ITS | CCD ---
Author Name Unknown Address [address] [place] [address] Organization [facility] Care Team Providers Care [employer] Name Role Phone Vivien Mason MD Unavailable [phone] Allergies Allergy Classification Reported Allergen(s) Allergy Type Date of Onset Reaction(s) Facility (1 source) codeine Drug Allergy 07-12-2017 itch, rash [facility] Medications Completed/Discontinued Medications Medication Drug Class(es) Dates Sig (Normalized) Sig (Original) BLACK COHASH (1 source) Start: 07-12-2017 BLACK COHASH 500 1/day per pt list BLACK COHASH Valeria C Felgar carboxymethylcellulose (1 source) Start: 07-12-2017 THERATEARS 2 tablets daily, per pt list THERATEARS Valeria C Felgar CETIRIZINE HCL TABS (1 source) Histamine-1 Receptor Antagonist Start: 07-12-2017 ZYRTEC ALLERGY TABS 1 day per pt list CETIRIZINE HCL TABS [id number] Valeria C Felgar MULTIPLE VITAMINS-MINERALS (1 source) Start: 07-12-2017 MULTIVITAMIN ADULT TABS 1 daily MULTIPLE VITAMINS-MINERAL S [id number] Valeria C Felgar Problems Active Problems Problem Classification Problem Date Documented Date Episodic/Chronic Unclassified (1 source) Screening mammography ; Translations: [Encounter for screening mammogram for malignant neoplasm of breast] Onset: 07-12-2017 07-12-2017 Unclassified (1 source) Gynecologic examination ; Translations: [Encounter for gynecological examination (general) (routine) without abnormal findings] Onset: 07-12-2017 07-12-2017 Past or Other Problems Problem Classification Problem Date Documented Da te Episodic/Chronic Abdominal pain (1 source) Pain in female pelvis; Translations: [Pelvic and perineal pain] Onset: 07-12-2017 07-12-2017 Episodic Results Test Name Value Interpretation Reference Range Facil ity Vital Signs Date Time Vital Sign Value Performing Clinician Reji bass 07-12-2017 10:35-0400 BMI (Body Mass Index) 28.24 kg/m2 Vivien Mason MD [facility] 07-12-2017 10:35-0400 Body Temperature 97.6 [degF] Vivien Mason MD [facility] 07-12-2017 10:35-0400 Body Temperature 97.59 [degF] Vivien Mason MD [facility] 07-12-2017 10:35-0400 BP Diastolic 78 mm[Hg] Vivien Mason MD [facility] 07-12-2017 10:35-0400 BP Systolic 130 mm[Hg] Vivien Mason MD [facility] 07-12-2017 10:35-0400 Height 164.47 cm Vivien Mason MD [facility] 07-12-2017 10:35-0400 Pulse (Heart Rate) 68 /min Vivien Mason MD [facility] 07-12-2017 10:35-0400 Respiratory Rate 16 /min Vivien Mason MD [facility] 07-12-2017 10:35-0400 Weight 76.39 kg Vivien Mason MD [facility] 07-12-2017 10:35-0400 Weight 76.38 kg Vivien Mason MD [facility] Plan of Treatment Date Care Activity Detail Author Start: 07-12-2017 End: 07-12-2017 Mammogram, screening Mammogram, Screening, both breasts [facility] Start: 07-12-2017 End: 07-12-2017 Us pelvic nonobstetric real-time image complete US Pelvis [facility] Start: 07-12-2017 End: 07-12-2017 Us transvaginal US Transvaginal [facility] Additional Source Comments FOR RECORDS PERTAINING TO PATIENTS WHO ARE OR HAVE BEEN ENROLLED IN A CHEMICAL DEPENDENCY/SUBSTANCEABUSE PROGRAM, SOME INFORMATION MAY BE OMITTED. This clinical summary was aggregated from multiple sources. Caution should be exercised in using it in the provision of clinical care. This summary normalizes information from multiple sources, and as a consequence, information in this document may materially change the coding, format and clinical context of patient data. In addition, data may be omitted in some cases. CLINICAL DECISIONS SHOULD BE BASED ON THE PRIMARY CLINICAL RECORDS. [facility]. provides no warranty or guarantee of the accuracy or completeness of information in this document.
--- NOTE | 2023-10-15 16:02 | CA.SCORE ---
Calcium Scoring Date of Study:: 10/15/23 Indications Indications: Hyperlipidemia Coronary Calcium Scoring: High-resolution Computed Tomographic imaging of the chest was performed on [10/15/2023], with particular attention paid to the coronary arteries. Images from the examination were analyzed for the presence and extent of coronary artery calcification , using coronary calcium quantification software. The patient tolerated the procedure well and there were no complications. The results of the coronary calcification analysis are provided below. Findings Coronary Artery Left Main (LM): 0 Left Anterior Descending (LAD): 10 Left Circumflex (LCX): 0 Right Coronary Artery (RCA): 0 Total Agatston Score: 10 Percentile Rankin-70 5th percentile Calcium Scoring Interpretation: Different methods to categorize the overall amount of coronary plaque. Overall amount CAC SIS Visual of coronary plaque P1 Mild -100 <2 1-2 vessels with mild amount of plaque P2 Moderate 101-300 3-4 1-2 vessels with moderate amount, 3 vessels with mild amount of plaque P3 Severe 301-999 5-7 3 vessels with moderate amount, 1 vessel with severe amount of plaque P4 Extensive >1000 >8 2-3 vessels with severe amount of plaque Conclusion: Minimal atherosclerotic plaquing noted.
== END | disposition home or self-care (01) ==
LOC: CT 13:09
PROVIDERS: PCP Family Medicine; Referring Provider Family Medicine; Visit Provider Family Medicine
DX: E78.00 Pure hypercholesterolemia, unspecified (principal)
CPT/HCPCS: 75571; 76380

== ENCOUNTER → 2024-02-04 | Outpatient (CLI) | payer OTHER, SELFPAY ==
[2024-02-04 14:05] LABS: Color, Urine Yellow (Yellow); Glucose, Dipstick Normal (Normal); Ketone-Dipstick Negative (Negative); Leukocyte Esterase-Dipstick 100 /ul (Negative); Nitrite-Dipstick Negative (Negative); Occult Blood-Urine Negative /ul (Negative); Protein-Dipstick Negative (Negative); Urine Bilirubin Dipstick Negative (Negative); Urine Clarity Clear (Clear); Urine Urobilinogen Normal (Normal); Urine pH 6.5 (5.0 - 8.0)
[2024-02-04 14:37] LABS: Microalbumin,Random Urine 9.5 mg/L (NO RANGE EST.)
[2024-02-04 14:42] LABS: AST(SGOT) 39 U/L (15-37); Alanine Aminotransfer ALT/SGPT 82 U/L (13-56); Albumin, Serum 3.8 g/dL (3.2-5.0); Alkaline Phosphatase 110 U/L (45-117); Anion Gap 6 (5-15); BUN 16 mg/dL (7-18); Calcium,Total 9.6 mg/dL (8.5-10.1); Chloride 108 mmol/L (98-107); Cholesterol 249 mg/dL (200); Creatinine, Serum 0.94 mg/dL (0.55-1.02); EST Glomerular Filtration Rate 64 mL/min (>60); Est Glom Filt Rate - Afr Amer 77 mL/min (>60); Globulin 3.7 g/dL (2.2-4.2); Glucose 98 mg/dL (74-106); High Density Lipoprotein 39 mg/dL; Potassium 4.6 mmol/L (3.5-5.1); Protein, Total 7.5 g/dL (6.4-8.2); Sodium Level 138 mmol/L (136-145); T4 Free Direct 1.16 ng/dL (0.76-1.46); Thyroid Stim Hormone (TSH) 2.01 uIU/mL (0.358-3.74); Triglycerides 128 mg/dL; Very Low Density Lipoprotein 26 mg/dL (5-40)
== END | disposition home or self-care (01) ==
LOC: MFPLAB 09:50
PROVIDERS: PCP Family Medicine; Visit Provider Family Medicine
DX: Z00.00 Encounter for general adult medical examination without abnormal findings (principal); E78.00 Pure hypercholesterolemia, unspecified; E03.9 Hypothyroidism, unspecified; I10 Essential (primary) hypertension
CPT/HCPCS: 36415; 80053; 80061; 81002; 82043; 84439; 84443

== ENCOUNTER → 2024-05-11 | Outpatient (CLI) | payer OTHER, SELFPAY ==
--- NOTE | 2024-05-11 09:01 | BI_ITS ---
MAMMOGRAPHY - BILATERAL SCREENING REASON FOR EXAM: Female, 63 years old. Routine annual screening examination. PERTINENT HISTORY: Personal history of breast cancer. History of prior left lumpectomy and left excisional breast biopsy. TECHNIQUE: Digital bilateral breast chandan (3D mammographic acquisition) in the CC and MLO projections. 2-D mediolateral oblique (MLO) and craniocaudad (CC) views of both breasts were obtained. CAD: Full Field Digital Mammography with Computer Added Detection was performed. COMPARISON: Comparison is made with prior study dated March 15, 2023 and February 09, 2022. FINDINGS: Breast Composition: The breasts are heterogeneously dense, which may obscure small masses. There are no dominant masses or suspicious calcifications. Stable postoperative changes at the left lumpectomy site. Stable fat-containing left axillary lymph node. No other significant abnormalities are identified. There has been no significant change since the prior study. BI/SCRN MAMM (CAD)W/CHANDAN BILAT IMPRESSION: Stable bilateral screening mammogram. Yearly follow-up mammogram recommended. (A) ASSESSMENT CATEGORY: BIRADS Category 2: Benign. A letter regarding these results will be sent to the patient by the facility within 30 days. Approximately 10% of breast cancers are not detected by mammography. A normal mammogram should not delay biopsy of a clinically suspicious abnormality. [id number] Electronically Signed: Mayito Del Rosario MD at 10:35 EDT ,
== END | disposition home or self-care (01) ==
LOC: OPBI 09:01
PROVIDERS: PCP Family Medicine; Referring Provider Nurse Practitioner Women's Health; Visit Provider Nurse Practitioner Women's Health
DX: Z12.31 Encounter for screening mammogram for malignant neoplasm of breast (principal)
CPT/HCPCS: 77063; 77067

== ENCOUNTER → 2024-08-01 | Outpatient (CLI) | payer OTHER, SELFPAY | END | disposition home or self-care (01) | LOC: LAB 12:22 | PROVIDERS: PCP Family Medicine; Referring Provider Nurse Practitioner Women's Health; Visit Provider Nurse Practitioner Women's Health | DX: Z00.00 Encounter for general adult medical examination without abnormal findings (principal); Z80.0 Family history of malignant neoplasm of digestive organs | CPT/HCPCS: 36415 ==

== ENCOUNTER → 2025-06-15 | Outpatient (CLI) | payer OTHER, SELFPAY ==
--- NOTE | 2025-06-15 08:30 | BI_ITS ---
EXAM: SCRN MAMM (CAD)W/CHANDAN BILAT DATE: 06/15/2025 CLINICAL HISTORY: F, Age 64 y/o , SCREEN FOR BREAST CANCER TECHNIQUE: Procedure Code: [id number] Modality: MG Procedure: SCRN MAMM (CAD)W/CHANDAN BILAT COMPARISON: Prior exam(s) dated 05/11/2024, 03/15/2023, 02/09/2022. FINDINGS: TISSUE DENSITY: There are scattered areas of fibroglandular density. Bilateral Breast Mammographic Findings: There is a mass in the lower inner left breast at posterior depth. No significant masses, calcifications or other abnormalities are identified in the right breast. BI/SCRN MAMM (CAD)W/CHANDAN BILAT IMPRESSION: The mass in the lower inner left breast at posterior depth requires further jade luation. Recommend diagnostic ultrasound of the left breast. OVERALL FINAL ASSESSMENT BI-RADS 0: INCOMPLETE - NEED ADDITIONAL IMAGING EVALUATION. RECOMMENDATION: Ultrasound Recommended A letter with findings and recommendations will be mailed to the patient. Reading Location: [id number]
== END | disposition home or self-care (01) ==
LOC: OPBI 08:33
PROVIDERS: PCP Family Medicine; Referring Provider Nurse Practitioner Women's Health; Visit Provider Nurse Practitioner Women's Health
DX: Z12.31 Encounter for screening mammogram for malignant neoplasm of breast (principal)
CPT/HCPCS: 77063; 77067

== ENCOUNTER → 2025-06-21 | Outpatient (CLI) | payer OTHER, SELFPAY ==
--- NOTE | 2025-06-21 08:28 | US_ITS ---
PROCEDURE: BREAST LIMITED UNILATERAL 06/21/2025 REASON FOR EXAM: F, Age 64 y/o , MASS COMPARISON: Mammogram 06/15/2025, 05/11/2024, 03/15/2023. TECHNIQUE: Procedure Code: USBRSTLIMIT Modality: US Procedure: BREAST LIMITED UNILATERAL FINDINGS: Follow-up examination performed for the left breast mass seen on examination of 06/15/2025. Ultrasound performed of the lower inner left breast. There is an irregular hypoechoic mass with mild posterior shadowing in the left breast at 7 o'clock 8 cm from the nipple measuring 0.5 x 0.5 x 0.5 cm. This is the likely correlate for the mammographic finding. There is another irregular hypoechoic mass in the left breast at 9 o'clock 5 cm from the nipple measuring 0.5 x 0.5 x 0.3 cm. US/Breast Limited Unilateral IMPRESSION: 1. Irregular left breast mass at 7 o'clock is suspicious. This is the likely correlate for the mammographic finding. 2. Irregular left breast mass at 9 o'clock is suspicious. Recommend ultrasound-guided core needle biopsy of the left breast masses at 7 o 'clock and 9 o'clock. BI-RADS 4: SUSPICIOUS RECOMMENDATION: Biopsy Recommended Reading Location: [id number]
--- NOTE | 2025-06-21 08:28 | US_ITS ---
PROCEDURE: BREAST LIMITED UNILATERAL 06/21/2025 REASON FOR EXAM: F, Age 64 y/o , MASS COMPARISON: Mammogram 06/15/2025, 05/11/2024, 03/15/2023. TECHNIQUE: Procedure Code: USBRSTLIMIT Modality: US Procedure: BREAST LIMITED UNILATERAL FINDINGS: Follow-up examination performed for the left breast mass seen on examination of 06/15/2025. Ultrasound performed of the lower inner left breast. There is an irregular hypoechoic mass with mild posterior shadowing in the left breast at 7 o'clock 8 cm from the nipple measuring 0.5 x 0.5 x 0.5 cm. This is the likely correlate for the mammographic finding. There is another irregular hypoechoic mass in the left breast at 9 o'clock 5 cm from the nipple measuring 0.5 x 0.5 x 0.3 cm. US/Breast Limited Unilateral IMPRESSION: 1. Irregular left breast mass at 7 o'clock is suspicious. This is the likely correlate for the mammographic finding. 2. Irregular left breast mass at 9 o'clock is suspicious. Recommend ultrasound-guided core needle biopsy of the left breast masses at 7 o 'clock and 9 o'clock. BI-RADS 4: SUSPICIOUS RECOMMENDATION: Biopsy Recommended Reading Location: [id number]
--- OUTSIDE RECORDS SUMMARY | 2025-06-21 08:46 | XMS RPT_ITS | CCD ---
Author Organization [facility] Inform ion Partnership [facility] Care Team Providers Care Car Dealer Name Role Phone Isabella LOREDO, Vivien Stauffer Unavailable [phone] Zaid Enamorado Referring Unavailable [place] NASCAR DRIVER, Diana Attending Unavailable Zaid Enamorado Primary Care Unavailable Zaid Enamorado Primary Care Unavailable Ranjith NASCAR DRIVER, Diana Attending Unavailable [place] NASCAR DRIVER, Diana Referring Unavailable Ranjith NASCAR DRIVER, Diana Attending Unavailable Ranjith NASCAR DRIVER, Diana Referring Unavailable Zaid Enamorado Primary Care Unavailable Ranjith NASCAR DRIVER, Diana Attending Unavailable [place] NASCAR DRIVER, Diana Referring Unavailable [facility] Unavailable Allergies Allergy Classification Reported Allergen(s) Allergy Type Date of Onset Reaction(s) Facility (1 source) codeine Drug Allergy 07-12-2017 itch, rash [facility] (3 sources) Codeine Drug Allergy 10-19-2019 Itching [facility] (1 source) Codeine Drug Allergy 05-08-2024 [facility] Repository Medications Current Medications Medication Drug Class(es) Dates Sig (Normalized) Sig (Original) Black Cohosh (3 sources) Start: 10-03-2018 take 200 mg by mouth once daily Black Cohosh Active 200 MG PO DAILY October 03, 2018 12:36pm Start: 10-03-2018 take 200 mg by mouth once reina y Black Cohosh Active 200 MG PO DAILY October 03, 2018 1:00am Start: 10-03-2018 take 200 mg by mouth once reina y Black Cohosh Active 200 MG PO DAILY October 03, 2018 12:00am carboxymethylcellulose 0.01 mg/mg ophthalmic gel (4 sources) Start: 10-03-2018 Carboxymethylc ellulose Sodium (Theratears) 1 % dropperette,gel Active 1 DRP OPHTHALMIC 4 to 8 times per day October 03, 2018 1:00am Start: 07-12-2017 THERATEJU 2 t ablets daily, per pt list BENJAMIN Poole levothyroxine sodium 0.025 mg oral tablet (3 sources) l-Thyroxine Start: 10-03-2018 take 1 tablet by mouth once daily Levothyroxine (Synthroid) 25 mcg tablet Active 25 MCG PO DAILY October 03, 2018 1:00am Multivitamin With Folic Acid (3 sources) Start: 10-12-2014 take 1 tablet by mouth once daily Multivitamin With Folic Acid Active 1 TABLET PO DAILY October 12, 2014 2:11pm Start: 10-12-2014 take 1 tablet by allyson th once daily Multivitamin With Folic Acid Active 1 TABLET PO DAILY October 12, 2014 1:00am Start: 10-12-2014 take 1 tablet by allyson th once daily Multivitamin With Folic Acid Active 1 TABLET PO DAILY October 12, 2014 12:00am Vitamin B Complex (3 sources) Start: 10-12-2014 Vitamin B Comp luan Active 1 EACH PO DAILY October 12, 2014 2:11pm Start: 10-12-2014 Vitamin B Comp luan Active 1 EACH PO DAILY October 12, 2014 1:00am Start: 10-12-2014 Vitamin B Comp luan Active 1 EACH PO DAILY October 12, 2014 12:00am Completed/Discontinued Medications Medication Drug Class(es) Dates Sig (Normalized) Sig (Original) acetaminophen 325 mg / oxyCODONE hydrochloride 5 mg oral tablet (3 sources) Opioid Agonist Start: 10-16-2014 End: 10-03-2018 take 1 tablet by mouth every four hours as needed Oxycodone-Acetamin ophen Discontinued 1 - 2 TABLET PO EVERY 4 HOURS NEEDED October 16, 2014 1:00am October 03, 2018 12:36pm biotin 1 mg oral tablet (3 sources) Start: 10-12-2014 End: 10-03-2018 take 1 mg by mouth once daily Biotin Discontinued 1 MG PO DAILY October 12, 2014 1:00am October 03, 2018 12:36pm BLACK COHASH (1 source) Start: 07-12-2017 BLACK COHASH 500 1/day per pt list BLACK COHASH Valeria Poole CETIRIZINE HCL TABS (4 sources) Histamine-1 Receptor Antagonist Start: 07-12-2017 ZYRTEC ALLERGY TABS 1 day per pt list CETIRIZINE HCL TABS [id number] Valeria Poole Start: 10-12-2014 take 10 mg by mouth once daily Cetirizine Active 10 MG PO DAILY October 12, 2014 1:00am ibuprofen 200 mg / pseudoephedrine hydrochloride 30 mg oral tablet (3 sources) alpha-Adrenergic Agonist, Nonsteroidal Anti-inflammatory Drug Start: 10-12-2014 End: 10-03-2018 Pseudoephedrine-Ibuprofen Discontinued 1 EACH PO DAILY October 12, 2014 1:00am October 03, 2018 12:36pm MULTIPLE VITAMINS-MINERALS (1 source) Start: 07-12-2017 MULTIVITAMIN ADULT TABS 1 daily MULTIPLE VITAMINS-MINERALS [id number] Valeria Poole psyllium 520 mg oral capsule (3 sources) Start: 10-12-2014 End: 10-03-2018 take 1.14 g by mouth once daily Psyllium Husk Discontinued 1.14 GM PO DAILY October 12, 2014 1:00am October 03, 2018 12:36pm Problems Active Problems Problem Classification Problem Date Documented Date Episodic/Chronic Other screening for suspected conditions (not mental disorders or infectious disease) (2 sources) Encounter for screening mammogram for malignant neoplasm of breast; Translations: [Other abnormal and inconclusive findings on diagnostic imaging of breast] Onset: 06-15-2025 Episodic Unclassified (1 source) Screening mammography ; Translations: [...] Results Test Name Value Interpretation Reference Range Facility SCRN MAMM (CAD)W/CHANDAN BILManpreet brantley 06-15-2025 [facility] [address], [place] [address] SCRN MAMM (CAD)W/CHANDAN BILAT MR#: [id number] Acct: [id number] Name: MICHELLE HERNÁNDEZ Rep #: [id number] : 1960 F 64 From: Sonali Ochoa MD PCP: Dr. Zaid Enamorado MD Status: REG CLI Study: SCRN MAMM (CAD)W/CHANDAN BILAT Date of Exam: 05/28 06/21 Exam# [id number] Ordering Dr: Diana Kasper NP NASCAR DRIVER -C EXAM: SCRN MAMM (CAD)W/CHANDAN BILAT DATE: 06/15/2025 CLINICAL HISTORY: F, Age 64 y/o , SCREEN FOR BREAST CANCER TECHNIQUE: Procedure Code: [id number] Modality: MG Procedure: SCRN MAMM (CAD)W/CHANDAN BILAT COMPARISON: Prior exam(s) dated 05/11/2024, 03/15/2023, 02/09/2022. FINDINGS: TISSUE DENSITY: There are scattered areas of fibroglandular density. Bilateral Breast Mammographic Findings: There is a mass in the lower inner left breast at posterior depth. No significant masses, calcifications or other abnormalities are identified in the right breast. BI/SCRN MAMM (CAD)W/CHANDAN BILAT IMPRESSION: The mass in the lower inner left breast at posterior depth requires further evaluation. Recommend diagnostic ultrasound of the left breast. OVERALL FINAL ASSESSMENT BI-RADS 0: INCOMPLETE - NEED ADDITIONAL IMAGING EVALUATION. RECOMMENDATION: Ultrasound Recommended A letter with findings and recommendations will be mailed to the patient. Reading Location: [facility] CC: NASCAR DRIVER-C Diana Kasper; Dr. Zaid Enamorado MD Battery Checker: Signed Normal [facility] NATERAon 08-01-2024 MAMI SEE SCANNED REPORT Normal [facility] Comment on above: Performed By: #### L [phone] #### [facility] Laboratory [address] [place], [address] Absolute lymphocyte counton 08-25-2022 Lymphocytes Auto (Unsp spec) [#/Vol] 1.87 10*3/uL 0.83-4.51 [facility] Work Phone: Basophil percentageon 2021 Basophils/100 WBC (Bld) 1.2 % 0-1 [facility] Work Phone: Bilirubin [Mass/Vol] 0.80 mg/dL 0.20-1.00 [facility] Work Phone: Comment on above: For patients on eltr ombopag therapy, use of Dimension Volga TBIL is not recommended. Chloride [Moles/Vol] 108 mmol/L 98-107 [facility] Work Phone: Cholesterol [Mass/Vol] 253 mg/dL <200 [facility] Work Phone: Comment on above: <200 mg/dL Desirable 200-240 mg/dL Borderline >240 mg/dL High Risk Eosinophils/100 WBC (Bld) 2.9 % 0-5 [facility] Work Phone: Glucose [Mass/Vol] 102 mg/dL 74-106 [facility] Work Phone: Comment on above: Fasting Glucose resu lt from 100 to 125 mg/dL suggests IMPAIRED HOMEOSTASIS per A.D.A. criteria. Neutrophils (Bld) [#/Vol] 3.2 10*3/uL 2.0-7.7 [facility] Work Phone: Neutrophils/100 WBC (Bld) 55.0 % 47-70 [facility] Work Phone: Potassium [Moles/Vol] 4.1 mmol/L 3.5-5.1 [facility] Work Phone: Protein [Mass/Vol] 7.6 g/dL 6.4-8.2 [facility] Work Phone: Sodium [Moles/Vol] 139 mmol/L 136-145 [facility] Work Phone: Triglyceride [Mass/Vol] 140 mg/dL <199 [facility] Work Phone: Comment on above: The drugs N-Acetylcy steine and Metamizole may falsely depress this assay.Serum Triglycerides Reference Interval Normal <150 mg/dL Borderline high 150 - 199 mg/dL High 200 - 499 mg/dL Very High > or = 500 mg/dL WBC (Bld) [#/Vol] 5.8 10*3/uL 4.4-11.0 [facility] Work Phone: Blood erythrocytes count (nu mber/volume)on 08-25-2022 RBC (Bld) [#/Vol] 5.45 10*6/uL 4.2-5.4 [facility] Work Phone: Blood hemoglobin measurement (mass/volume)on 08-25-2022 Hemoglobin (Bld) [Mass/Vol] 14.9 g/dL 12.0-15.0 [facility] Work Phone: Blood lymphocytes/100 leukoc yteson 08-25-2022 Lymphocytes/100 WBC (Bld) 32.0 % 19-41 [facility] Work Phone: Blood monocytes/100 leukocyt eson 08-25-2022 Monocytes/100 WBC (Bld) 8.6 % 0-10 [facility] Work Phone: Blood platelet mean volumeon 08-25-2022 Platelet mean volume (Bld) [Entitic vol] 10.6 fL 6.2-12.0 [facility] Work Phone: Determination of erythrocyte mean corpuscular volume (MCV)on 08-25-2022 MCV (RBC) [Entitic vol] 83.7 fL 81-99 [facility] Work Phone: Erythrocyte sedimentation ra nova 08-25-2022 ESR (Bld) [Velocity] 17 mm/h 0-30 [facility] Work Phone: Hematocrit Auto (Bld) [Volum e fraction]on 08-25-2022 Hematocrit (Bld) [Volume fraction] 45.6 % 37-47 [facility] Work Phone: Iron measurement (mass/mass) on 08-25-2022 Iron (Unsp spec) [Mass/Mass] 79 ug/dL 50-170 [facility] Work Phone: Laboratory - Chemistry and C hemistry - challengeon 08-25-2022 ALP [Catalytic activity/Vol] 97 U/L 45-117 [facility] Work Phone: ALT [Catalytic activity/Vol] 40 U/L 13-56 [facility] Work Phone: CO2 [Moles/Vol] 24.0 mmol/L 21.0-32.0 [facility] Work Phone: Cobalamin (Vitamin B12) [Mass/Vol] 976 pg/mL 211-911 [facility] Work Phone: Free T4 [Mass/Vol] 1.18 ng/dL 0.76-1.46 [facility] Work Phone: Globulin (S) [Mass/Vol] 3.7 g/dL 2.2-4.2 [facility] Work Phone: Urea nitrogen/Creatinin e [Mass ratio] 23.5 mg/mg 10-20 [facility] Work Phone: Laboratory - Hematology and Cell countson 08-25-2022 Erythrocyte distribution width (RBC) [Entitic vol] 45.0 fL 35.1-43.9 [facility] Work Phone: Erythrocyte distribution width (RBC) [Ratio] 15.0 % 11.6-14.6 [facility] Work Phone: Immature granulocytes/100 WBC (Bld) 0.300 % 0.0-0.9 [facility] Work Phone: Comment on above: IG% - Immature Granu locytes (promyelocytes, myelocytes and metamyelocytes) > 1% indicates that a LEFT SHIFT is Present. MCH (RBC) [Entitic mass] 27.3 pg 27.0-32.0 [facility] Work Phone: Nucleated RBC/100 WBC (Bld) [Ratio] 0 % 0-5 [facility] Work Phone: MCHC Auto (RBC) [Mass/Vol]on 08-25-2022 MCHC (RBC) [Mass/Vol] 32.7 g/dL 32-36 [facility] Work Phone: No Panel Informationon 08-25 Anti-Nuclear Antibody Screen Negative Negative [facility] Work Phone: Comment on above: Performed at: [employer] [address] [id number] Director: Angel Saeed PhD, Phone: [phone] Estimated GFR (MDRD) Amer 87 mL/min >60 [facility] Work Phone: Comment on above: GFR Calc Estimated GFR (MDRD) Non-Af Amer 72 mL/min >60 [facility] Work Phone: Comment on above: Non- GFR Calc Thyroid Stimulating Hormone (TSH) 1.30 uIU/mL 0.358-3.74 [facility] Work Phone: Vitamin D 25-Hydroxy 44.7 ng/mL [facility] Work Phone: Comment on above: Vitamin D 25(OH) Sta tus Range Deficiency <20 ng/mL (50nmol/L) Insufficiency 20 - 30 ng/mL (50 - 75 nmol/L) Sufficiency 30 - 100 ng/mL (75 - 250 nmol/L) Toxicity >100 ng/mL (>250 nmol/L) Platelets bldon 08-25-2022 Platelets (Bld) [#/Vol] 255 10*3/uL 150-450 [facility] Work Phone: Serum or plasma C reactive p rotein measurement (mass/volume)on 08-25-2022 CRP [Mass/Vol] mg/L 0.0-3.0 [facility] Work Phone: Comment on above: C-Reactive Protein ( CRP) provides useful information for thediagnosis, therapy and monitoring of inflammatory processesand associated diseases. For the evaluation of Relative Riskfor Cardiovascular Disease, a High Sensitivity CRP (HSCRP)should be ordered. Serum or plasma albumin silvia urement (mass/volume)on 08-25-2022 Albumin [Mass/Vol] 3.9 g/dL 3.2-5.0 [facility] Work Phone: Serum or plasma albumin/glob ulin mass ratioon 08-25-2022 Albumin/Globulin [Mass ratio] 1.1 {ratio} 0.9-2.4 [facility] Work Phone: Serum or plasma calcium silvia urement (mass/volume)on 08-25-2022 Calcium [Mass/Vol] 9.5 mg/dL 8.5-10.1 [facility] Work Phone: Serum or plasma cholesterol in HDL measurement (mass/volume)on 08-25-2022 Cholesterol in HDL [Mass/Vol] 49 mg/dL >40 [facility] Work Phone: Comment on above: The drugs N-Acetylcy steine and Metamizole may falsely depress this assay. Reference Range HDL <40 mg/dL Low HDL Cholesterol HDL >or= 60 mg/dL High HDL Cholesterol Serum or plasma cholesterol in VLDL measurement (mass/volume)on 08-25-2022 Cholesterol in VLDL [Mass/Vol] 28 mg/dL 5-40 [facility] Work Phone: Serum or plasma creatinine m easurement (mass/volume)on 08-25-2022 Creatinine [Mass/Vol] 0.85 mg/dL 0.55-1.02 [facility] Work Phone: Comment on above: The validity of the calculated GFR & GFRAA in patients over 70 years has not been determined. Clinical correlation is essential. Serum or plasma ferritin nurys surement (mass/volume)on 08-25-2022 Ferritin [Mass/Vol] 109 ng/mL 8-252 [facility] Work Phone: Serum or plasma low density lipoprotein (LDL) cholesterol measurement (mass/volume)on 08-25-2022 Cholesterol in LDL [Mass/Vol] 176 mg/dL 0-130 [facility] Work Phone: Serum or plasma urea nitroge n measurement (mass/volume)on 08-25-2022 Urea nitrogen [Mass/Vol] 20 mg/dL 7-18 [facility] Work Phone: Serum or plasma uric acid me asurement (mass/volume)on 08-25-2022 Urate [Mass/Vol] 6.2 mg/dL 2.6-6.0 [facility] Work Phone: Comment on above: The drugs N-Acetylcy steine and Metamizole may falsely depress this assay. Serum rheumatoid factor dete ctionon 08-25-2022 Rheumatoid factor Ql (S) < 10.0 IU/mL <15 [facility] Work Phone: Thin prep Papanicolaou smear with manual screeningon 08-25-2022 Thin prep Papanicolaou smear with manual screening 27 U/L 15-37 [facility] Work Phone: Thin prep Papanicolaou smear with manual screening 7 5-15 [facility] Work Phone: Office Visit: est annualon 1 Documentation of current medications (procedure) Done Invalid Interpretation Code [facility] Fall risk assessment No Invalid Interpretation Code [facility] Tobacco smoking status NHIS Never Invalid Interpretation Code [facility] Tobacco use CPHS Never smoker Invalid Interpretation Code [facility] Office Visit: est annualon 1 Colonoscopy (procedure) Colonoscopy (procedure) Invalid Interpretation Code [facility] Office Visit: est annualon 0 04-27-2016 Breast Mammogram screening Normal Bilateral Invalid Interpretation Code [facility] Vital Signs Date Time Vital Sign Value Performing Clinician Faci lity 07-12-2017 10:35-0400 BMI (Body Mass Index) 28.24 kg/m2 Vivien Mason MD [facility] 07-12-2017 10:35-0400 Body Temperature 97.6 [degF] Vivien Mason MD [facility] 07-12-2017 10:35-0400 Body Temperature 97.59 [degF] Vivien Mason MD [facility] 07-12-2017 10:35-0400 BP Diastolic 78 mm[Hg] Vivien Mason MD [facility] 07-12-2017 10:35-0400 BP Systolic 130 mm[Hg] Vivien Mason MD [facility] 07-12-2017 10:35-0400 Height 164.47 cm Vivien Mason MD [facility] 07-12-2017 10:35-0400 Pulse (Heart Rate) 68 /min Vivien Mason MD [facility] 07-12-2017 10:35-0400 Respiratory Rate 16 /min Vivien Mason MD [facility] 07-12-2017 10:35-0400 Weight 76.39 kg Vivien Mason MD [facility] 07-12-2017 10:35-0400 Weight 76.38 kg Vivien Mason MD [facility] Encounters Encounter Date Encounter Type Care Provider Facility Start: 06-21-2025 ambulatory Zaid Enamorado Faci lity:[facility] Start: 06-15-2025 ambulatory Diana Kasper NASCAR DRIVER Facil ity:[facility] Start: 08-22-2024 Encounter for genera l adult medical examination without abnormal findings Diana Kasper NASCAR DRIVER [facility] Start: 08-01-2024 End: 08-01-2024 [facility] Start: 03-15-2023 End: 03-15-2023 ambulatory [facility] Work Phone: Start: 03-15-2023 End: 03-15-2023 Patient encounter procedure [facility] Start: 08-25-2022 End: 08-25-2022 ambulatory [facility] Work Phone: Start: 08-25-2022 End: 08-25-2022 Patient encounter procedure [facility] Start: 02-09-2022 End: 02-09-2022 Patient encounter procedure [facility] Procedures Date Procedure Procedure Detail Performing Clinician Start: 03-15-2023 Screening mammography Start: 02-09-2022 Screening mammography Plan of Treatment Date Care Activity Detail Author Start: 07-12-2017 End: 07-12-2017 Mammogram, screening Mammogram, Screening, both breasts [facility] Start: 07-12-2017 End: 07-12-2017 Us pelvic nonobstetric real-time image complete US Pel[facility] Start: 07-12-2017 End: 07-12-2017 Us transvaginal US Transvaginal [place] Immunizations Immunization Date Immunization Notes Care Provider Fa cility 12-27-2020 Covid (Pfizer) [facility] 12-06-2020 Covid (Pfizer) [facility] Payers Date Payer Category Payer Private Health Insurance [id number] 2024 Self-pay [id number] Private Health Insurance [id number] Unknown [id number] [id number] [id number] Unknown [id number] [id number] [id number] Unknown [id number] [id number] [id number] Unknown [id number] Social History Date Type Detail Facility Start: 10-19-2019 End: 10-19-2019 Tobacco smoking status NHIS Unknown if ever smoked [facility] Start: 1960 Sex Assigned At Female [facility] Evaluation note Note Date & Type Note Facility Evaluation note No assessment information availa ble [facility] Work Phone: Chief Complaint and Reason for Visit Chief Complaint SCREENING Chief Complaint SCREENING Family History No Family History Records Found Relationship Condition Age at Onset Recorded Date/T ivelisse mother Disorder of thyroid Unknown Cerebrovascular accident (CVA) Unknown Osteoporosis Unknown Hypertension Unknown father Malignant neoplasm Unknown Diabetes mellitus Unknown Cardiac disease Unknown Advance Directives No Advanced Directives Records Found Advance Directive Response Recorded Date/ Time Advance Directives Yes October 12, 2014 2:15pm Living Will Yes October 12 2:15pm Power of Sensitometrist Yes October 12, 2014 2:15pm Advance Directive Response Recorded Date/ Time Advance Directives Yes October 12, 2014 1:15pm Living Will Yes October 12 1:15pm Power of Sensitometrist Yes October 12, 2014 1:15pm Summary Purpose Additional Source Comments Goals (unrecognized section and content) Goals may be documented in a n alternate sectionGoals may be documented in an alternate sectionGoals may be documented in an alternate section Care Teams (unrecognized sec tion and content) Team Status: Active Member Role Status Dates Dr. Nadeem Enamorado MD Family Provider Active Dr. Nadeem Enamorado MD Primary Care Provider Activ e Team Status: Inactive Member Role Status Dates Dr. Nadeem Enamorado MD Primary Care Provider Activ e Diana Kasper NASCAR DRIVER, NASCAR DRIVER-C Attending Provider, Referring Provider Active INFORMATION SOURCE (unrecogn ized section and content) DATE CREATED AUTHOR 06/19/2025 [facility] FOR RECORDS PERTAINING TO PATIENTS WHO ARE [...] BE BASED ON THE PRIMARY CLINICAL RECORDS. [employer] provides no warranty or guarantee of the accuracy or completeness of information in this document.
--- OUTSIDE RECORDS SUMMARY | 2025-06-21 08:46 | XMS RPT_ITS | CCD ---
Author Organization [facility] Inform ion Partnership [facility] Care Team Providers Care Engine Lathe Operator Name Role Phone Isabella LOREDO, Vivien Stauffer Unavailable [phone] Zaid Enamorado Referring Unavailable [place] FORK LIFT TECHNICIAN, Diana Attending Unavailable Zaid Enamorado Primary Care Unavailable Zaid Enamorado Primary Care Unavailable Ranjith FORK LIFT TECHNICIAN, Diana Attending Unavailable [place] FORK LIFT TECHNICIAN, Diana Referring Unavailable Ranjith FORK LIFT TECHNICIAN, Diana Attending Unavailable Ranjith FORK LIFT TECHNICIAN, Diana Referring Unavailable Zaid Enamorado Primary Care Unavailable Ranjith FORK LIFT TECHNICIAN, Diana Attending Unavailable [place] FORK LIFT TECHNICIAN, Diana Referring Unavailable [facility] Unavailable Allergies Allergy Classification Reported Allergen(s) Allergy Type Date of Onset Reaction(s) Facility (1 source) codeine Drug Allergy 07-12-2017 itch, rash [facility] (3 sources) Codeine Drug Allergy 10-19-2019 Itching [facility] (1 source) Codeine Drug Allergy 05-08-2024 [facility] Repository Medications Current Medications Medication Drug Class(es) [...] day per pt list CETIRIZINE HCL TABS [id number] Valeria Poole Start: 10-12-2014 take 10 mg [...] MULTIVITAMIN ADULT TABS 1 daily MULTIPLE VITAMINS-MINERALS [id number] Valeria Poole psyllium 520 mg oral capsule [...] BILManpreet brantley 06-15-2025 SCRN MAMM (CAD)W/[facility] [address], [place] [address] SCRN MAMM (CAD)W/CHANDAN BILAT MR#: [id number] Acct: [id number] Name: MICHELLE HERNÁNDEZ Rep #: [id number] : 1960 F 64 From: Sonali Ochoa MD PCP: Dr. Zaid Enamorado MD Status: REG CLI Study: SCRN MAMM (CAD)W/CHANDAN BILAT Date of Exam: 05/28 06/21 Exam# [id number] Ordering Dr: Diana Kasper NP FORK LIFT TECHNICIAN -C EXAM: SCRN MAMM (CAD)W/CHANDAN BILAT DATE: [...] be mailed to the patient. Reading Location: [facility] CC: FORK LIFT TECHNICIAN-C Diana Kasper; Dr. Zaid Enamorado MD Imaging Center Manager: Signed Normal [facility] NATERAon 08-01-2024 MAMI SEE SCANNED REPORT Normal [facility] Comment on above: Performed By: #### L [id number] #### [facility] Laboratory [address] [place], [address] Absolute lymphocyte counton 08-25-2022 Lymphocytes Auto (Unsp spec) [#/Vol] 1.87 10*3/uL 0.83-4.51 [facility] Work Phone: Basophil percentageon 2021 Basophils/100 WBC (Bld) 1.2 % 0-1 [facility] Work Phone: Bilirubin [Mass/Vol] 0.80 mg/dL 0.20-1.00 [facility] Work Phone: Comment on above: For patients on eltr ombopag therapy, use of Dimension Bentley TBIL is not recommended. Chloride [Moles/Vol] 108 mmol/L 98-107 [facility] Work Phone: Cholesterol [Mass/Vol] 253 mg/dL <200 [facility] Work Phone: Comment on above: <200 mg/dL Desirable 200-240 mg/dL Borderline >240 mg/dL High Risk Eosinophils/100 WBC (Bld) 2.9 % 0-5 [facility] Work Phone: Glucose [Mass/Vol] 102 mg/dL 74-106 [facility] Work Phone: Comment on above: Fasting Glucose resu lt from 100 to 125 mg/dL suggests IMPAIRED HOMEOSTASIS per A.D.A. criteria. Neutrophils (Bld) [#/Vol] 3.2 10*3/uL 2.0-7.7 [facility] Work Phone: Neutrophils/100 WBC (Bld) 55.0 % 47-70 [facility] Work Phone: Potassium [Moles/Vol] 4.1 mmol/L 3.5-5.1 [facility] Work Phone: Protein [Mass/Vol] 7.6 g/dL 6.4-8.2 [facility] Work Phone: Sodium [Moles/Vol] 139 mmol/L 136-145 [facility] Work Phone: Triglyceride [Mass/Vol] 140 mg/dL <199 [facility] Work Phone: Comment on above: The drugs N-Acetylcy steine and Metamizole may falsely depress this assay.Serum Triglycerides Reference Interval Normal <150 mg/dL Borderline high 150 - 199 mg/dL High 200 - 499 mg/dL Very High > or = 500 mg/dL WBC (Bld) [#/Vol] 5.8 10*3/uL 4.4-11.0 [facility] Work Phone: Blood erythrocytes count (nu mber/volume)on 08-25-2022 RBC (Bld) [#/Vol] 5.45 10*6/uL 4.2-5.4 [facility] Work Phone: Blood hemoglobin measurement (mass/volume)on 08-25-2022 Hemoglobin (Bld) [Mass/Vol] 14.9 g/dL 12.0-15.0 [facility] Work Phone: Blood lymphocytes/100 leukoc yteson 08-25-2022 Lymphocytes/100 WBC (Bld) 32.0 % 19-41 [facility] Work Phone: Blood monocytes/100 leukocyt eson 08-25-2022 Monocytes/100 WBC (Bld) 8.6 % 0-10 [facility] Work Phone: Blood platelet mean volumeon 08-25-2022 Platelet mean volume (Bld) [Entitic vol] 10.6 fL 6.2-12.0 [facility] Work Phone: Determination of erythrocyte mean corpuscular volume (MCV)on 08-25-2022 MCV (RBC) [Entitic vol] 83.7 fL 81-99 [facility] Work Phone: Erythrocyte sedimentation ra nova 08-25-2022 ESR (Bld) [Velocity] 17 mm/h 0-30 [facility] Work Phone: Hematocrit Auto (Bld) [Volum e fraction]on 08-25-2022 Hematocrit (Bld) [Volume fraction] 45.6 % 37-47 [facility] Work Phone: Iron measurement (mass/mass) on 08-25-2022 Iron (Unsp spec) [Mass/Mass] 79 ug/dL 50-170 [facility] Work Phone: Laboratory - Chemistry and C hemistry - challengeon 08-25-2022 ALP [Catalytic activity/Vol] 97 U/L 45-117 [facility] Work Phone: ALT [Catalytic activity/Vol] 40 U/L 13-56 [facility] Work Phone: CO2 [Moles/Vol] 24.0 mmol/L 21.0-32.0 [facility] Work Phone: Cobalamin (Vitamin B12) [Mass/Vol] 976 pg/mL 211-911 [facility] Work Phone: Free T4 [Mass/Vol] 1.18 ng/dL 0.76-1.46 [facility] Work Phone: Globulin (S) [Mass/Vol] 3.7 g/dL 2.2-4.2 [facility] Work Phone: Urea nitrogen/Creatinin e [Mass ratio] 23.5 mg/mg 10-20 [facility] Work Phone: Laboratory - Hematology and Cell countson 08-25-2022 Erythrocyte distribution width (RBC) [Entitic vol] 45.0 fL 35.1-43.9 [facility] Work Phone: Erythrocyte distribution width (RBC) [Ratio] 15.0 % 11.6-14.6 [facility] Work Phone: Immature granulocytes/100 WBC (Bld) 0.300 % 0.0-0.9 [facility] Work Phone: Comment on above: IG% - Immature Granu locytes (promyelocytes, myelocytes and metamyelocytes) > 1% indicates that a LEFT SHIFT is Present. MCH (RBC) [Entitic mass] 27.3 pg 27.0-32.0 [facility] Work Phone: Nucleated RBC/100 WBC (Bld) [Ratio] 0 % 0-5 [facility] Work Phone: MCHC Auto (RBC) [Mass/Vol]on 08-25-2022 MCHC (RBC) [Mass/Vol] 32.7 g/dL 32-36 [facility] Work Phone: No Panel Informationon 08-25 Anti-Nuclear Antibody Screen Negative Negative [facility] Work Phone: Comment on above: Performed at: [facility] [address] [id number] Director: Angel Saeed PhD, Phone: [phone] Estimated GFR (MDRD) Amer 87 mL/min >60 [facility] Work Phone: Comment on above: GFR Calc Estimated GFR (MDRD) Non-Af Amer 72 mL/min >60 [facility] Work Phone: Comment on above: Non- GFR Calc Thyroid Stimulating Hormone (TSH) 1.30 uIU/mL 0.358-3.74 [facility] Work Phone: Vitamin D 25-Hydroxy 44.7 ng/mL [facility] Work Phone: Comment on above: Vitamin D 25(OH) Sta tus Range Deficiency <20 ng/mL (50nmol/L) Insufficiency 20 - 30 ng/mL (50 - 75 nmol/L) Sufficiency 30 - 100 ng/mL (75 - 250 nmol/L) Toxicity >100 ng/mL (>250 nmol/L) Platelets bldon 08-25-2022 Platelets (Bld) [#/Vol] 255 10*3/uL 150-450 [facility] Work Phone: Serum or plasma C reactive p rotein measurement (mass/volume)on 08-25-2022 CRP [Mass/Vol] mg/L 0.0-3.0 [facility] Work Phone: Comment on above: C-Reactive Protein ( CRP) provides useful information for thediagnosis, therapy and monitoring of inflammatory processesand associated diseases. For the evaluation of Relative Riskfor Cardiovascular Disease, a High Sensitivity CRP (HSCRP)should be ordered. Serum or plasma albumin silvia urement (mass/volume)on 08-25-2022 Albumin [Mass/Vol] 3.9 g/dL 3.2-5.0 [facility] Work Phone: Serum or plasma albumin/glob ulin mass ratioon 08-25-2022 Albumin/Globulin [Mass ratio] 1.1 {ratio} 0.9-2.4 [facility] Work Phone: Serum or plasma calcium silvia urement (mass/volume)on 08-25-2022 Calcium [Mass/Vol] 9.5 mg/dL 8.5-10.1 [facility] Work Phone: Serum or plasma cholesterol in HDL measurement (mass/volume)on 08-25-2022 Cholesterol in HDL [Mass/Vol] 49 mg/dL >40 [facility] Work Phone: Comment on above: The drugs N-Acetylcy steine and Metamizole may falsely depress this assay. Reference Range HDL <40 mg/dL Low HDL Cholesterol HDL >or= 60 mg/dL High HDL Cholesterol Serum or plasma cholesterol in VLDL measurement (mass/volume)on 08-25-2022 Cholesterol in VLDL [Mass/Vol] 28 mg/dL 5-40 [facility] Work Phone: Serum or plasma creatinine m easurement (mass/volume)on 08-25-2022 Creatinine [Mass/Vol] 0.85 mg/dL 0.55-1.02 [facility] Work Phone: Comment on above: The validity of the calculated GFR & GFRAA in patients over 70 years has not been determined. Clinical correlation is essential. Serum or plasma ferritin nurys surement (mass/volume)on 08-25-2022 Ferritin [Mass/Vol] 109 ng/mL 8-252 [facility] Work Phone: Serum or plasma low density lipoprotein (LDL) cholesterol measurement (mass/volume)on 08-25-2022 Cholesterol in LDL [Mass/Vol] 176 mg/dL 0-130 [facility] Work Phone: Serum or plasma urea nitroge n measurement (mass/volume)on 08-25-2022 Urea nitrogen [Mass/Vol] 20 mg/dL 7-18 [facility] Work Phone: Serum or plasma uric acid me asurement (mass/volume)on 08-25-2022 Urate [Mass/Vol] 6.2 mg/dL 2.6-6.0 [facility] Work Phone: Comment on above: The drugs N-Acetylcy steine and Metamizole may falsely depress this assay. Serum rheumatoid factor dete ctionon 08-25-2022 Rheumatoid factor Ql (S) < 10.0 IU/mL <15 [facility] Work Phone: Thin prep Papanicolaou smear with manual screeningon 08-25-2022 Thin prep Papanicolaou smear with manual screening 27 U/L 15-37 [facility] Work Phone: Thin prep Papanicolaou smear with manual screening 7 5-15 [facility] Work Phone: Office Visit: est annualon 1 Documentation of current medications (procedure) Done Invalid Interpretation Code [facility] Fall risk assessment No Invalid Interpretation Code [facility] Tobacco smoking status NHIS Never Invalid Interpretation Code [facility] Tobacco use CPHS Never smoker Invalid Interpretation Code [facility] Office Visit: est annualon 1 Colonoscopy (procedure) Colonoscopy (procedure) Invalid Interpretation Code [facility] Office Visit: est annualon 0 04-27-2016 Breast Mammogram screening Normal Bilateral Invalid Interpretation Code [facility] Vital Signs Date Time Vital Sign Value Performing Clinician Faci lity 07-12-2017 10:35-0400 BMI (Body Mass Index) 28.24 kg/m2 Vivien Mason MD [facility] 07-12-2017 10:35-0400 Body Temperature 97.6 [degF] Vivien Mason MD [facility] 07-12-2017 10:35-0400 Body Temperature 97.59 [degF] Vivien Mason MD [facility] 07-12-2017 10:35-0400 BP Diastolic 78 mm[Hg] Vivien Mason MD [facility] 07-12-2017 10:35-0400 BP Systolic 130 mm[Hg] Vivien Mason MD [facility] 07-12-2017 10:35-0400 Height 164.47 cm Vivien Mason MD [facility] 07-12-2017 10:35-0400 Pulse (Heart Rate) 68 /min Vivien Mason MD [facility] 07-12-2017 10:35-0400 Respiratory Rate 16 /min Vivien Mason MD [facility] 07-12-2017 10:35-0400 Weight 76.39 kg Vivien Mason MD [facility] 07-12-2017 10:35-0400 Weight 76.38 kg Vivien Mason MD [facility] Encounters Encounter Date Encounter Type Care Provider Facility Start: 06-21-2025 ambulatory Zaid Enamorado Faci lity:[facility] Start: 06-15-2025 ambulatory Diana Kasper FORK LIFT TECHNICIAN Facil ity:[facility] Start: 08-22-2024 Encounter for genera l adult medical examination without abnormal findings Diana Kasper FORK LIFT TECHNICIAN [facility] Start: 08-01-2024 End: 08-01-2024 [facility] Start: 03-15-2023 End: 03-15-2023 ambulatory [facility] Work Phone: Start: 03-15-2023 End: 03-15-2023 Patient encounter procedure [facility] Start: 08-25-2022 End: 08-25-2022 ambulatory [facility] Work Phone: Start: 08-25-2022 End: 08-25-2022 Patient encounter procedure [facility] Start: 02-09-2022 End: 02-09-2022 Patient encounter procedure [facility] Procedures Date Procedure Procedure Detail Performing Clinician Start: 03-15-2023 Screening mammography Start: 02-09-2022 Screening mammography Plan of Treatment Date Care Activity Detail Author Start: 07-12-2017 End: 07-12-2017 Mammogram, screening Mammogram, Screening, both breasts [facility] Start: 07-12-2017 End: 07-12-2017 Us pelvic nonobstetric real-time image complete US Pelvis [facility] Start: 07-12-2017 End: 07-12-2017 Us transvaginal US Transvaginal [facility] Immunizations Immunization Date Immunization Notes Care Provider Fa cility 12-27-2020 Covid (Pfizer) [facility] 12-06-2020 Covid (Pfizer) [facility] Payers Date Payer Category Payer Private Health Insurance [id number] 2024 Self-pay [id number] Private Health Insurance [id number] Unknown [id number] [id number] [id number] Unknown [id number] Unknown [id number] [id number] Unknown [id number] [id number] Social History Date Type Detail Facility Start: 10-19-2019 End: 10-19-2019 Tobacco smoking status NHIS Unknown if ever smoked [facility] Start: 1960 Sex Assigned At Female [facility] Evaluation note Note Date & Type Note Facility Evaluation note No assessment information availa ble [facility] Work Phone: Chief Complaint and Reason for [...] Will Yes October 12 2:15pm Power of Folder Hand Yes October 12, 2014 2:15pm Advance Directive Response Recorded Date/ Time Advance Directives Yes October 12, 2014 1:15pm Living Will Yes October 12 1:15pm Power of Folder Hand Yes October 12, 2014 1:15pm Summary Purpose [...] Primary Care Provider Activ e Diana Kasper FORK LIFT TECHNICIAN, FORK LIFT TECHNICIAN-C Attending Provider, Referring Provider Active INFORMATION SOURCE (unrecogn ized section and content) DATE CREATED AUTHOR 06/19/2025 [facility] FOR RECORDS PERTAINING TO PATIENTS WHO ARE [...] BE BASED ON THE PRIMARY CLINICAL RECORDS. [employer] provides no warranty or guarantee of the accuracy or completeness of information in this document.
== END | disposition home or self-care (01) ==
PROVIDERS: PCP Family Medicine; Referring Provider Nurse Practitioner Women's Health; Visit Provider Nurse Practitioner Women's Health
DX: N63.20 Unspecified lump in the left breast, unspecified quadrant (principal)
CPT/HCPCS: 76642

== ENCOUNTER → 2025-07-05 | Outpatient (CLI) | payer OTHER, SELFPAY ==
--- NOTE | 2025-07-05 | BRBX_PTH ---
PATIENT: MICHELLE HERNÁNDEZ LOC: OPUS U#:[id number] AGE/SX: 64/F ROOM: RE07/05/[address]: Dr. Miko Trevizo MD : 1960 BED: DIS: 07/05/2025 SPEC #: [id number] RECD: 07/05/25 13:01 STATUS: TANNER REQ #: [id number] MAUREEN: 07/05/25 00:[address]: Miko Trevizo DEPT: SURGICAL PATHOLOGY RECD BY: Hudson Lyle ENTERED: 07/05/25 13:46 SP TYPE: BREAST BX OTHR DR: Dr. Zaid Enamorado MD Tissues: A - Left breast, NOS B - Left breast, NOS Procedures: Immunohistochemical Stains Surgery Specimen Level IV IHC Stain ADDITIONAL HEADER OPERATION: Ultrasound guided left breast core biopsies PRE-OP DIAGNOSIS: Mass of left breast TISSUE SUBMITTED: A- Left breast 9o'clock, 5cm from nipple, B- Left breast 7o'clock, 8cm from nipple MICROSCOPIC DIAGNOSIS A. Breast, left, 9:00, 5 cm FN, ultrasound-guided biopsy: * Benign fibroadipose breast tissue B. Breast, left, 7:00, 8 CMFN, ultrasound-guided biopsy: * Invasive ductal carcinoma, Grade 1 (See note) Note: Sections show an invasive ductal carcinoma, Grade 1 (tubules=2, nuclear pleomorphism=2, mitosis=1) measuring 0.5 cm in greatest dimension. The p40 and CK5/6 show loss of the myoepithelial layers supporting the diagnosis. The E-Cadherin is strong and diffusely positive supporting the ductal phenotype. ESTROGEN RECEPTOR (ER): Positive, strong immunoreactivity in >95% of tumor cells PROGESTERONE RECEPTOR (IN): Positive, strong immunoreactivity in 85-95% of tumor cells HER2/LORA IHC: Equivocal, (score 2+) HER2/LORA FISH: In progress Ki67 IHC: 20-25% COMMENT The slides in part B are reviewed with Dr. Andrade in consultation MICROSCOPIC DESCRIPTION Slides are reviewed. All matched controls reacted appropriately. These tests were developed and their performance characteristics determined by [facility]. They may not have been cleared or approved by the U.S. Food and Drug Administration. The FDA has determined that such clearance or approval is not necessary. The above immunohistochemical markers are viewed by the Pathologist. GROSS DESCRIPTION Received in 2 formalin containers labeled with the patient's name and date of . Designated as: A. "9:00 LT breast" are 2 swanson-yellow tissue cores 1.7 cm and 2.0 cm in length by 0.2 cm in diameter. Entirely submitted in 1 cassette. Cold ischemic time: <1-minuteFormalin fixation time: 6 hours, 45 minutes B. "7:00 LT breast" are multiple swanson-yellow fragmented tissue cores, 1.5 x 0.4 x 0.1 cm in aggregate. Entirely submitted in 1 cassette. Cold ischemic time: <1-minuteFormalin fixation time: 6 hours, 43 minutes Note: Formalin fixation times for both parts A and B are based off the time written on the containers (1245/1247), as no time of collection is provided on the requisition. (SC) MI 07/05/2025 CPT:[id number] ADDENDUM ADDENDUM ADDENDUM ADDENDUM ADDENDUM ADDENDUM ADDENDUM ADDENDUM ADDENDUM ADDENDUM ADDENDUM ADDENDUM ADDENDUM ADDENDUM ADDENDUM ADDENDUM ADDENDUM ADDENDUM 07/17/2025 09:13 ADDENDUM 07/17/2025 09:13 ADDENDUM 07/17/2025 09:13 ADDENDUM 07/17/2025 09:13 ADDENDUM 07/17/2025 09:13 This addendum is added to incorporate an outside pathology consultation report. The case was examined at [facility] by Dr. Del Rosario (#[id number]) and the following diagnosis was rendered. B. Breast, left, 7o'clock, 8CMFN, ultrasound guided biopsy: HER2 FISH : Negative HER2 SCORE REPORT: HER2 SCORE : Negative HER2 / [id number] RATIO: 1.0 HER2 COPY NUMBER / CELL: 2.3 Please see complete above mentioned consultation report in EMR
--- NOTE | 2025-07-05 12:26 | US_ITS ---
PROCEDURE: US BREAST BIOPSY 1ST LESION 07/05/2025 REASON FOR EXAM: F, Age 64 y/o , LEFT BREAST LUMP Ultrasound-guided left breast biopsy. TECHNIQUE: Procedure Code: [id number] Modality: US Procedure: US BREAST BIOPSY 1ST LESION COMPARISON: Prior exam(s) dating back to prior ultrasound dated June 22, 2025.. FINDINGS: ULTRASOUND: Ultrasound was targeted to the 9 o'clock position of the left breast. Under direct sonographic guidance, the surgeon performed core biopsies of the 5 mm x 6 mm x 3 mm hypoechoic nodule at the 9 o'clock position of the breast at 5 cm from the nipple. A tissue clip marker was placed. US/US Breast Biopsy 1st Lesion IMPRESSION: OVERALL FINAL ASSESSMENT: BIRADS 11 WAITING PATHOLOGY RECOMMENDATION: Routine annual follow-up in 1 Year Reading Location: [place] [address]
--- NOTE | 2025-07-05 12:51 | PCM.OPRPT ---
Operative Report (Standard) Operative Information Date of Procedure: 07/05/25 Pre-Operative Diagnosis: Left breast lesion x2 Post-Operative Diagnosis: same Surgery/Procedure Performed: US guided core needle biopsy of two left breast lesions caustic room attendant: No Type of Anesthesia: Local Procedure Start Time: 12:30 Procedure Stop Time: 12:51 Select all DRAINS/GRAFTS/IMPLANTS that apply: Implanted device Implanted device details: clips Estimated Blood Loss: 1 Specimen collected: Yes Description of specimen(s) removed: left breast biopsies Description of surgery: Left breast was imaged and the two lesions were identified. The breast was prepped and injected with lidocaine. A small dorota was made with a scalpel and next the biopsy needle was placed into the 7 o clock lesion first and biopsies were obtained and a clip was placed. Through the same incision the 9 o clock lesion was biopsied with a new needle and a clip was placed into this lesion. The needles were removed and bandage and steri strip were placed. Pt tolerated the procedure well Surgical Findings: none Complications Complications: No
== END | disposition home or self-care (01) ==
PROVIDERS: PCP Family Medicine; Referring Provider Surgery; Visit Provider Surgery
DX: N63.20 Unspecified lump in the left breast, unspecified quadrant (principal); C50.312 Malignant neoplasm of lower-inner quadrant of left female breast
CPT/HCPCS: 19083; 19084; 88305; 88341; 88342

== ENCOUNTER 2025-07-27 09:00 | Day surgery (SDC) | payer OTHER, SELFPAY ==
[2025-07-27] VITALS (8 sets, daily range): BP systolic 125–154; BP diastolic 72–91; PULSE 61–71; RESP 12–18; TEMP 36.1–36.7; O2SAT 96–99
--- NOTE | 2025-07-27 09:20 | PCM.PRE.AN2 ---
ASA Classification* ASA Classification ASA Classification: 2 Assessment & Plan Anesthesia* Anesthesia Assessment Anesthesia Assessment: Discussed sedation and/or anesthesia options, risks, benefits, and alternatives with patient/parents/legal guardian/POA. Questions invited. The patient/parents/legal guardian/POA seems to understand and agrees to proceed with anesthesia plan. Reviewed the physical assessment, medical history, allergy history and patient home medications list prior to surgery/procedure/anesthetic and documented any changes. Performed airway and anesthesia risk assessments. Anesthesia Type Anesthesia Type: General Anesthesia Focused Assessment* Airway Assessment Mouth opens: >3 cm Mallampati Score: II Labs Anesthesia Preop lab: CBC WBC, (4.4-11.0) 5.8 K/mm3 08/25/22, 10:48 RBC, (4.2-5.4) 5.45 M/mm3 H 08/25/22, 10:48 Hgb, (12.0-15.0) 14.9 g/dL 08/25/22, 10:48 Hct, (37-47) 45.6 % 08/25/22, 10:48 Plt Count, (150-450) 255 K/mm3 08/25/22, 10:48 CHEMISTRY Potassium, (3.5-5.1) 4.6 mmol/L 02/04/24, 09:53 Sodium, (136-145) 138 mmol/L 02/04/24, 09:53 BUN, (7-18) 16 mg/dL 02/04/24, 09:53 Creatinine, (0.55-1.02) 0.94 mg/dL 02/04/24, 09:53 Glucose, (74-106) 98 mg/dL 02/04/24, 09:53 TSH, (0.358-3.74) 2.01 uIU/mL 02/04/24, 09:53 COAG Pre-Assessment Diagnosis/Proposed Procedure Planned Operative Procedure(s): LEFT BREAST LUMPECTOMY X2 SLN BIOPSY BLUE DYE Anesthesia History 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 When Was Last Pacemaker Check QUESTION #4 FULL TEXT: You/Your Family Experience fever (hyperthermia) with Anesthesia Last Oral Intake Last Oral intake: Last Oral Intake NPO since Meds taken in AM with sips of water? Meds patient instructed to take am of surgery PONV PONV - rf microwave engineer: PONV - rf microwave engineer Female Yes 07/19/25 14:05 HX of Motion Sickness Yes 07/19/25 14:05 HX of N/V After Surgery No 07/19/25 14:05 Non-Smoker Yes 07/19/25 14:05 Duration of Surgery greater Yes 07/19/25 14:05 than 60 minutes Number of Risk Factors 4 07/19/25 14:05 PONV Score Severe Risk 07/19/25 14:05 Height & Weight Height & Weight: Anesthesia: Height & Weight Height 5 ft 5 in 07/16/25 08:17 Respiratory Assessment Respiratory Assessment - rf microwave engineer: Respiratory Tract Infection Hx - rf microwave engineer Hx Respiratory Tract Infection Yes: HEAD AND CHEST COLD/NO 07/19/25 14:05 FEVER STOP Sleep Apnea STOP Sleep Apnea - rf microwave engineer: STOP Sleep Apnea - rf microwave engineer Hx Hypertension Yes: 5 YRS AGO 07/19/25 14:05 Hx Sleep Apnea No 07/19/25 14:05 CPAP No 10/16/14 14:17 BIPAP No 10/12/14 13:15 Do you snore loudly (louder No 07/19/25 14:05 than talking or can be heard Do you often feel tired/ No 07/19/25 14:05 fatigued/ sleepy during daytime? Has anyone observed you stop No 07/19/25 14:05 breathing during sleep? STOP Results Negative 07/19/25 14:05 QUESTION #5 FULL TEXT : Do you snore loudly (louder than talking or can be heard through closed doors)? 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 Specify any problems Hx of Preganancy in last 3 No 07/19/25 14:05 Months Nurse Filling Out Transfusion DSCHRIBER 07/19/25 14:05 & Questions: Date: 07/19/25 07/19/25 14:05 Time: 14:07 07/19/25 14:05 Patient unable to answer at this time (ie. confused, unrespo /Reproduction History /Reproductive History - rf microwave engineer: /Reproductive Hx- rf microwave engineer Hx Now No 07/19/25 14:05 Gestational Age (in weeks): EDC: Hx Hx Para Hx Section SAB No 07/19/25 14:05 Active Medications Active Medications: Current Medications Generic Name Dose Route Start Last Admin Trade Name Freq PRN Reason Stop Dose Admin Cefazolin Sodium 2 gm/ Sodium 110 mls @ 200 mls/hr 07/27/25 11:30 Chloride IV 07/27/25 12:02 INTRAOP ONE Lactated Ringer's 1,000 mls @ 15 mls/hr 07/27/25 09:30 IV .Q48H ELOISA PFSH Medical History Vertigo Wears glasses Post-menopausal Cancer High cholesterol Back pain Injury of back Migraine headache Heartburn Non-smoker Hypothyroid Hypertension Home Medications ?Medication ?Instructions ?Recorded ?Last Taken ?Type cetirizine 10 mg capsule 10 mg PO DAILY 10/12/14 Unknown History multivitamin with folic acid 400 1 tab PO DAILY 10/12/14 Unknown History mcg tablet carboxymethylcellulose sodium 1 % 1 drp ophthalmic (eye) 4-8XD PRN 10/03/18 Unknown History eye gel in a dropperette dry eye(s) (TheraTears) levothyroxine 50 mcg tablet 50 mcg PO QDAY 06/27/25 Unknown History cholecalciferol (vitamin D3) 10 10 mcg PO MOWEFR 07/19/25 Unknown History mcg (400 unit) capsule (Vitamin D3) fluticasone propionate 50 1 spray intranasal Q12H PRN 07/19/25 Unknown History mcg/actuation nasal allergies spray,suspension (Flonase Allergy Relief) Allergy/AdvReac Type Severity Reaction Status Date / Time thimerosal Allergy Intermediate vision Verified 07/19/25 14:02 change codeine Allergy Itching Verified 07/19/25 14:02 Family History Mother Thyroid disorder CVA (cerebral vascular accident) Osteoporosis Hypertension Father Cancer prostate Diabetes Heart disease Hypertension Surgical History Hx of colonoscopy S/P lumpectomy, left breast S/P breast biopsy, left S/P AMEENA (total abdominal hysterectomy) Social History Smoking Status: Never smoker alcohol intake: never substance use type: does not use caffeine: Yes what type of physical activity do you participate in: walking seatbelt use: always do you feel safe at home: Yes additional social history: Jamaal Fernandes 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
--- NOTE | 2025-07-27 09:22 | PCM.PRE.AN2 ---
ASA Classification* ASA Classification ASA Classification: 2 Assessment & Plan Anesthesia* Anesthesia Assessment Anesthesia Assessment: Discussed sedation and/or anesthesia options, risks, benefits, and alternatives with patient/parents/legal guardian/POA. Questions invited. The patient/parents/legal guardian/POA seems to understand and agrees to proceed with anesthesia plan. Reviewed the physical assessment, medical history, allergy history and patient home medications list prior to surgery/procedure/anesthetic and documented any changes. Performed airway and anesthesia risk assessments. Anesthesia Type Anesthesia Type: General Anesthesia Focused Assessment* Airway Assessment Mouth opens: >3 cm Mallampati Score: II Labs Anesthesia Preop lab: CBC WBC, (4.4-11.0) 5.8 K/mm3 08/25/22, 10:48 RBC, (4.2-5.4) 5.45 M/mm3 H 08/25/22, 10:48 Hgb, (12.0-15.0) 14.9 g/dL 08/25/22, 10:48 Hct, (37-47) 45.6 % 08/25/22, 10:48 Plt Count, (150-450) 255 K/mm3 08/25/22, 10:48 CHEMISTRY Potassium, (3.5-5.1) 4.6 mmol/L 02/04/24, 09:53 Sodium, (136-145) 138 mmol/L 02/04/24, 09:53 BUN, (7-18) 16 mg/dL 02/04/24, 09:53 Creatinine, (0.55-1.02) 0.94 mg/dL 02/04/24, 09:53 Glucose, (74-106) 98 mg/dL 02/04/24, 09:53 TSH, (0.358-3.74) 2.01 uIU/mL 02/04/24, 09:53 COAG Pre-Assessment Diagnosis/Proposed Procedure Planned Operative Procedure(s): LEFT BREAST LUMPECTOMY X2 SLN BIOPSY BLUE DYE Anesthesia History Anesthesia 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 When Was Last Pacemaker Check QUESTION #4 FULL TEXT: You/Your Family Experience fever (hyperthermia) with Anesthesia Last Oral Intake Last Oral intake: Last Oral Intake NPO since Meds taken in AM with sips of water? Meds patient instructed to take am of surgery PONV PONV - inside sales account representative: PONV - inside sales account representative Female Yes 07/19/25 14:05 HX of Motion Sickness Yes 07/19/25 14:05 HX of N/V After Surgery No 07/19/25 14:05 Non-Smoker Yes 07/19/25 14:05 Duration of Surgery greater Yes 07/19/25 14:05 than 60 minutes Number of Risk Factors 4 07/19/25 14:05 PONV Score Severe Risk 07/19/25 14:05 Height & Weight Height & Weight: Anesthesia: Height & Weight Height 5 ft 5 in 07/16/25 08:17 Respiratory Assessment Respiratory Assessment - inside sales account representative: Respiratory Tract Infection Hx - inside sales account representative Hx Respiratory Tract Infection Yes: HEAD AND CHEST COLD/NO 07/19/25 14:05 FEVER STOP Sleep Apnea STOP Sleep Apnea - inside sales account representative: STOP Sleep Apnea - inside sales account representative Hx Hypertension Yes: 5 YRS AGO 07/19/25 14:05 Hx Sleep Apnea No 07/19/25 14:05 CPAP No 10/16/14 14:17 BIPAP No 10/12/14 13:15 Do you snore loudly (louder No 07/19/25 14:05 than talking or can be heard Do you often feel tired/ No 07/19/25 14:05 fatigued/ sleepy during daytime? Has anyone observed you stop No 07/19/25 14:05 breathing during sleep? STOP Results Negative 07/19/25 14:05 QUESTION #5 FULL TEXT : Do you snore loudly (louder than talking or can be heard through closed doors)? 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 Specify any problems Hx of Preganancy in last 3 No 07/19/25 14:05 Months Nurse Filling Out Transfusion DSCHRIBER 07/19/25 14:05 & Questions: Date: 07/19/25 07/19/25 14:05 Time: 14:07 07/19/25 14:05 Patient unable to answer at this time (ie. confused, unrespo /Reproduction History /Reproductive History - inside sales account representative: /Reproductive Hx- inside sales account representative Hx Now No 07/19/25 14:05 Gestational Age (in weeks): EDC: Hx Hx Para Hx Section SAB No 07/19/25 14:05 Active Medications Active Medications: Current Medications Generic Name Dose Route Start Last Admin Trade Name Freq PRN Reason Stop Dose Admin Cefazolin Sodium 2 gm/ Sodium 110 mls @ 200 mls/hr 07/27/25 11:30 Chloride IV 07/27/25 12:02 INTRAOP ONE Lactated Ringer's 1,000 mls @ 15 mls/hr 07/27/25 09:30 IV .Q48H ELOISA PFSH Medical History Vertigo Wears glasses Post-menopausal Cancer High cholesterol Back pain Injury of back Migraine headache Heartburn Non-smoker Hypothyroid Hypertension Home Medications ?Medication ?Instructions ?Recorded ?Last Taken ?Type cetirizine 10 mg capsule 10 mg PO DAILY 10/12/14 Unknown History multivitamin with folic acid 400 1 tab PO DAILY 10/12/14 Unknown History mcg tablet carboxymethylcellulose sodium 1 % 1 drp ophthalmic (eye) 4-8XD PRN 10/03/18 Unknown History eye gel in a dropperette dry eye(s) (TheraTears) levothyroxine 50 mcg tablet 50 mcg PO QDAY 06/27/25 07/27/25 07:00 History cholecalciferol (vitamin D3) 10 10 mcg PO MOWEFR 07/19/25 Unknown History mcg (400 unit) capsule (Vitamin D3) fluticasone propionate 50 1 spray intranasal Q12H PRN 07/19/25 Unknown History mcg/actuation nasal allergies spray,suspension (Flonase Allergy Relief) oxycodone 5 mg tablet 5 - 10 mg (1 - 2 x 5 mg) PO Q4H 07/27/25 Unknown Rx PRN PRN Pain Score 4-10 5 days #20 tabs Allergy/AdvReac Type Severity Reaction Status Date / Time thimerosal Allergy Intermediate vision Verified 07/27/25 09:30 change codeine Allergy Itching Verified 07/27/25 09:30 Family History Mother Thyroid disorder CVA (cerebral vascular accident) Osteoporosis Hypertension Father Cancer prostate Diabetes Heart disease Hypertension Surgical History Hx of colonoscopy S/P lumpectomy, left breast S/P breast biopsy, left S/P AMEENA (total abdominal hysterectomy) Social History Smoking Status: Never smoker alcohol intake: never substance use type: does not use caffeine: Yes what type of physical activity do you participate in: walking seatbelt use: always do you feel safe at home: Yes additional social history: Jamaal Fernandes 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
[2025-07-27] MEDS: Lactated Ringers 1,000 ML 15 ML IV (09:42)
--- NOTE | 2025-07-27 10:12 | BI_ITS ---
EXAM: BI/Breast Biopsy Specimen
--- NOTE | 2025-07-27 10:12 | BI_ITS ---
EXAM: BI/Breast Biopsy Specimen
--- NOTE | 2025-07-27 10:30 | NM_ITS ---
PROCEDURE: NM/Lymph Node Injection Only
--- NOTE | 2025-07-27 11:30 | BREAST_PTH ---
PATIENT: MICHELLE HERNÁNDEZ LOC: [facility] – [place] U#:[id number] AGE/SX: 64/F ROOM: RE07/27/[address]: Dr. Miko Trevizo MD : 1960 BED: DIS: 07/27/2025 SPEC #: [id number] RECD: 07/27/25 13:07 STATUS: TANNER REAshley #: [id number] MAUREEN: 07/27/25 11:[address]: Miko Trevizo DEPT: SURGICAL PATHOLOGY RECD BY: Hudson Lyle ENTERED: 07/27/25 14:18 SP TYPE: BREAST OTHR DR: MD Lizette Choi PA-C Tissues: A - Lymph node, NOS B - Left breast, NOS C - Left breast, NOS D - Left breast, NOS Procedures: Frozen Section (charge) Immunohistochemical Stains Surgery Specimen Level V IHC Stain ADDITIONAL HEADER OPERATION: Breast, stereo wire localization left lumpectomy x2, sentinel node biopsy PRE-OP DIAGNOSIS: Left breast cancer TISSUE SUBMITTED: A- Left breast sentinel lymph node, B- Left breast mass #1 *long - lateral, short- superior*, C- Left breast mass #2 *long - lateral, short- superior*, D- Left breast anterior margin *stitch packer anterior* FROZEN SECTION DIAGNOSIS A. Left breast, sentinel lymph node: Negative for macrometastasis. MS/mr 07/27/2025 MICROSCOPIC DIAGNOSIS A. Left breast sentinel lymph node, excision: - Negative for metastasis. - IHC for pankeratin confirms the histologic impression. B. 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 - pT1a pNX - Grade 1 (tubule 1, nuclear 2, mitosis 1). - DCIS, cribriform pattern, nuclear low grade. - ER: positive (100%, strong intensity) - IL: positive (95%, intermediate to strong intensity) - HER2 IHC: negative (score 1+) - Ki67: 15% - IHC for CK5/6 and p40 support the histologic impression. - See Synoptic Report. C. 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 - Fibrocystic mastopathy with usual ductal hyperplasia. - Negative for malignancy. - IHC for CK5/6 and p40 support the histologic impression. D. Left breast anterior margin, excision: - Intraductal papilloma, fibrocystic mastopathy. - Focal fibrosis and reactive changes suggestive of prior biopsy site. - IHC for CK5/6 supports the histologic impression. - Negative for evidence of lymphovascular invasion (IHC for ERG and CD31). SYNOPTIC REPORT FOR INVASIVE BREAST CARCINOMA Specimen (P=partial, M=mastectomy):?P Laterality (R=right, L=left):?L Focality (U=unifocal, M=multifocal):?U Tumor size (cm):?0.5 x 0.3 x 0.3 cm Histologic type:?invasive ductal carcinoma of no special type Histologic grade:?1 ??? Tubule score (1-3):?1 ??? Nuclear score (1-3):?2 ??? Mitotic score (1-3):?1 Skin, nipple epidermis, skeletal muscle (I=involved, N=negative, NA=not applicable):?NA Lymphovascular invasion (E=extensive, F=focal, N=not identified):?N Margins of main specimen (P=positive, N=negative):?N Distance to closest margin of main specimen (mm):?4 mm Designation of closest margin of main specimen:?lateral Designation of other margins of main specimen </=1 mm:?NA Re-resection margin status (P=positive, N=negative, NA=not applicable):?N ? DCIS (P=present, N=not identified):?P ?? Nuclear grade:?low ?? Comedo necrosis (P=present, N=not identified):?N ?? Extensive intraductal component (P=present, N=not identified):?N ?? Margins of main specimen (P=positive, N=negative):?N ?? Distance to closest margin of main specimen (mm):?2 mm ?? Designation of closest margin of main specimen:?lateral ?? Designation of other margins of main specimen </=2 mm:?NA ???Longest span </= 2 mm to margin of main specimen (mm):?< 1 mm ?? Re-resection margin status (P=positive, N=negative, NA=not applicable):?N ? Regional lymph nodes: ?? Total number of lymph nodes:?1 ???Number of sentinel lymph nodes:?1 ?? Number with macrometastases:?0 ?? Number with micrometastases:?0 ?? Number with isolated tumor cells:?0 ???Size of largest yoav metastasis (mm):?NA ?? Size of extranodal extension (mm) (N=not identified):?NA ? Estrogen receptor:?positive (100% strong intensity) Progesterone receptor:?positive (95% intermediate to strong intensity) HER2 IHC:?negative (score 1+) HER2 FISH:?NA Ki67: 15% Specimen in which ER/IL/HER2 performed:?[id number] B pTNM:?pT1a pN0 Additional findings:?fibroadenoma (part C), fibrocystic mastopathy with intraductal papilloma (part D). Comment:?A radiograph of the breast specimen was utilized to assist in the sectioning of the specimen. ? The above synoptic report complies, in slightly modified form, with the guidelines of the [employer] and the Association of [employer] of [employer] for the reporting of cancer specimens ? MICROSCOPIC DESCRIPTION Slides are reviewed. GROSS DESCRIPTION A. Received fresh for frozen section diagnosis labeled the patient's name and date of . Designated left breast sentinel lymph node is a 0.8 x 0.7 x 0.5 cm lymph node with attached fat. The specimen is trisected revealing blue dye. Entirely submitted for frozen section diagnosis and subsequently placed in cassette A1 for permanent sections. B. Received fresh labeled with the patient's name and date of . Designated as left breast mass #1 is a 3.2 x 3.2 x 2.0 cm lumpectomy with an exposed localization wire on the anterior aspect. There is a short suture designated as superior and a long suture designated as lateral. Skin is not present. The specimen is inked as follows: Superior: RedInferior: BlueMedial: YellowLateral: OrangeAnterior: GreenPosterior: Black The specimen is serially sectioned from superior to inferior (into 6 slices) revealing a 0.5 x 0.3 x 0.3 cm swanson-pink, somewhat indurated mass in slices #3-#4. A biopsy clip is identified in slice #2. The mass is located the following distances from each margin: Anterior: 1.2 cmInferior: 1.4 cmMedial: 1.2 cmLateral: 0.5 cmPosterior: 0.4 cmSuperior: 1.1 cm Review of postoperative imaging confirms the presence of a biopsy clip and localization wire. Housekeeper/Custodian/Laundry Worker sections are submitted, sequentially from slice #1 to slice #6, as follows: B1: Slice #1, superior, perpendicular (red)B2: Slice #2 biopsy site with medial/lateral/posterior/medial (orange/yellow/black/yellow)B3: Slice #3, mass to lateral/anterior/medial (orange/green/yellow)B4: Slice #4, mass to lateral/posterior/medial (orange/black/yellow)B5: Slice #5 lateral/posterior/medial margins (/black/yellow)B6: Slice #6, inferior, perpendicular (blue) Cold ischemic time: 18 minutesFormalin fixation time: 55 hours, 16 minutes C. Received fresh labeled with the patient's name and date of . Designated as left breast mass #2 is a 5.2 x 2.9 x 2.8 cm lumpectomy with an exposed localization wire on the anterior aspect. There is a short suture designated as superior and a long suture designated as lateral. Skin is not present. The specimen is inked as follows: Superior: RedInferior: BlueMedial: YellowLateral: OrangeAnterior: GreenPosterior: Black The specimen is serially sectioned from medial to lateral (into 6 slices) revealing a 0.7 x 0.6 x 0.5 cm swanson-white, firm mass located in slice #4. The mass is located the following distances from each margin: Anterior: <0.1 cmInferior: 1.8 cmMedial: 1.6 cmLateral: 1.7 cmPosterior: 1.6 cmSuperior: 0.7 cm Additionally, there are focal cysts in slice #2. Review of postoperative imaging confirms the presence of a biopsy clip and localization wire. Housekeeper/Custodian/Laundry Worker sections are submitted, sequentially from slice #1 to slice #6, as follows:C1: Slice #1 medial, perpendicular (yellow)C2: Slice #2 with cysts and anterior/posterior/inferior (green/black/blue)C3: Slice #3 with anterior/posterior/inferior (green/black/blue)C4: Slice #3 with posterior/superior/anterior (black/red/green)C5: Slice #4 mass to anterior/superior/inferior (green/red/blue)C6: Slice #4 with anterior/inferior/posterior (green/blue/black)C7: Slice #5 with anterior/inferior/posterior (green/blue/black)C8: Slice #6 lateral, perpendicular (orange) Cold ischemic time: 24 minutesFormalin fixation time: 56 hours, 10 minutesD. Received in formalin labeled with the patient's name and date of . Designated as left breast anterior margin is a 4.4 x 3.5 x 2.0 cm portion of swanson-yellow lobulated fibrofatty tissue with a blue surgical dye discoloration and focal cautery. There is a suture designated as anterior. The anterior margin is inked green. Sectioning reveals focally fibrotic cut surfaces with focal, yellow apparent fat necrosis. Entirely submitted in 10 cassettes. Cold ischemic time: UnknownFormalin fixation time: Approximately 55 hours Note: No collection time provided for part D LA 07/27/2025 CPT:[id number]
--- NOTE | 2025-07-27 11:51 | HP.PCM_ITS ---
History and Physical
--- NOTE | 2025-07-27 11:51 | PCM.HP.BLA ---
History and Physical Date of Admission: 07/27/25 Intake Vital Signs 06/27/2508:09 07/16/2508:17 Height 5 ft 5 in 5 ft 5 in Weight: 182 lb 184 lb BMI 30.2 30.6 BP 148/85 H 143/85 H Blood Pressure Location Rt brachial Rt brachial Position Sitting Sitting Respiration 16 17 Pulse 59 L Pulse Source Monitor Temp 97.6 F L Temp Source Temporal Pulse Oximetry (%) 99 Oxygen Delivery Method room air Intake Visit Reasons: DISCUSS BREAST SX Chief Complaint: discuss breast sx Accompanied by: Is patient in pain?: No Allergies thimerosal Allergy (Intermediate, Verified 07/16/25 08:18) vision change codeine Allergy (Verified 07/16/25 08:18) Itching Medications ?Medication ?Instructions ?Recorded ?Confirmed ?Type cetirizine 10 mg capsule 10 mg PO DAILY 10/12/14 07/16/25 History multivitamin with folic acid 400 1 tab PO DAILY 10/12/14 07/16/25 History mcg tablet carboxymethylcellulose sodium 1 % 1 drp ophthalmic (eye) 4-8XD PRN 10/03/18 07/16/25 History eye gel in a dropperette (TheraTears) levothyroxine 50 mcg tablet 50 mcg PO QDAY 06/27/25 07/16/25 History PFSH Medical History Environmental allergies Hypothyroid Hypertension Low back problem Surgical History S/P lumpectomy, left breast S/P breast biopsy, left S/P AMEENA (total abdominal hysterectomy) Family History Mother Thyroid disorder CVA (cerebral vascular accident) Osteoporosis Hypertension Father Cancer prostate Diabetes Heart disease Hypertension Social History Smoking Status: Never smoker alcohol intake: never substance use type: does not use caffeine: Yes what type of physical activity do you participate in: walking seatbelt use: always do you feel safe at home: Yes additional social history: Jamaal Fernandes 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 HPI HPI HPI: Patient is a 64-year-old female here to discuss left breast cancer recently diagnosed on ultrasound guided biopsy ROS General General: No weight change, appetite, fatigue, colon cancer, breast cancer or weakness HEENT HEENT: No difficulty swallowing, eye injury, eye surgery, swollen glands or hoarseness Endo Endocrine: No thyroid disease, diabetes mellitus, thyroid cancer, Hair loss, heat intolerance or cold intolerance Skin Skin: No rash or changing moles Breast Breast: No left breast lump, right breast lump, nipple discharge, breast pain, abnormal mammogram, abnormal US or breast enlargement Musc Musculoskeletal: Yes back problems; No arthritis, rheumatoid arthritis, gout or joint pain Cardio Cardiovascular: No murmur, pacemaker, heart disease, atrial fibrillation, high blood pressure, heart attack, heart stent, palpitations, shortness of breath with exertion or chest pain Psych Psychiatric: No depression, anxiety or hearing voices Resp Respiratory: No shortness of breath, No sleep apnea, No cough, No COPD, No asthma, No emphysema and No wheezing Gastro Gastrointestinal: No abdominal pain, No nausea or vomiting, No diarrhea, No constipation, No blood in stool, No acid reflux, Yes hemorrhoids, No ulcers, No gallbladder problem and No black,tarry stools Fitz Hematologic: No blood thinners, No blood disorders, No bleeding, No anemia and No blood clots Neuro Neurologic: No system reviewed and no additional complaints, except as documented, No as per HPI, No abnormal gait, No abnormal hearing, No abnormal movements, No abnormal speech, No behavioral changes, No burning sensations, No confusion, No convulsions, No disequilibrium, No dizziness, No localized weakness, No frequent falls, No headache(s), No lack of coordination, No loss of vision, No memory loss, No numbness, No other visual disturbances, No radicular pain, No restless legs, No sensory deficit, No syncope, No tingling, No tremor(s), No weakness and No other Exam Const General: cooperative Orientation: alert and oriented x3 [facility] Head: normal to inspection Neck Neck: normal visual inspection and full ROM Chest Chest palpation & inspection: normal inspection of the chest Resp Effort & Inspection: normal respiratory effort Auscultation: clear to auscultation bilaterally Cardio Rate: regular rate Rhythm: regular rhythm GI Inspection: non-distended Palpation: soft and nontender Skin General: no rashes or lesions noted Neuro General: patient alert and patient oriented x3 Extrem General: full ROM Psych Appearance: grossly normal Mental Status: mental status grossly normal Assessment and Plan Assessment and Plan (1) Breast cancer, left breast: Status: Acute Plan: The patient had 2 lesions in the left breast which were both biopsy. 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 I discussed this with the patient in detail. I recommended removing both lesions in the breast. A clip was placed into each lesion. I believe this can be done through the same incision. I discussed performing left breast partial mastectomy x 2 as well as sentinel lymph node biopsy. I discussed the risks of the procedure such as bleeding, infection, nerve injury, lymphedema, need for further surgery. Patient understands the risks and is willing to proceed. Miko Trevizo MD Pager: [facility] [address] [place] [address], [address] [place] [address] Office: I have examined the patient and the H&P has been reviewed. There are no clinical changes since date of exam.
[2025-07-27] MEDS: Lactated Ringers 1,000 ML 1000 ML IV (12:12)
[2025-07-27] MEDS: Cefazolin 1 GM/5 ML Vial 2 GM IV (12:12)
[2025-07-27] MEDS: Midazolam 2 MG/2 ML Syringe IV (12:12)
[2025-07-27] MEDS: 0.9% Normal Saline (Pres. free 10 ML Vial (12:30)
[2025-07-27] MEDS: Bupiv/Epi 0.25% 30 ML Vial (13:19)
--- NOTE | 2025-07-27 13:21 | OP.PCM_ITS ---
Operative Report (Standard)
--- NOTE | 2025-07-27 13:21 | PCM.OPRPT ---
Operative Report (Standard) Operative Information Date of Procedure: 07/27/25 Pre-Operative Diagnosis: Left breast cancer upper inner quadrant Post-Operative Diagnosis: Same Surgery/Procedure Performed: 1. Stereotactic guided wire localization of 2 masses 2. Partial mastectomy x 2 3. Left axillary sentinel lymph node biopsy joint cutter: Yes Mechanical Cad Designer: Lizeth Hernandez Tasks completed by customer assistance associate: Opening & closing and Retracting Type of Anesthesia: General/Regional RN Documented Start/Stop Times: Operation Date: 07/27/25 11:30 Case Time Into Pre-Op 07/27/25 09:17 Out of Pre-Op 07/27/25 12:10 Anesthesia Start 07/27/25 12:12 Into Room 07/27/25 12:12 Procedure Start 07/27/25 12:40 Procedure Start Time: 12:40 Procedure Stop Time: 13:30 Select all DRAINS/GRAFTS/IMPLANTS that apply: None Estimated Blood Loss: 20 Specimen collected: Yes Description of specimen(s) removed: Left axillary lymph node and left breast specimen x 2 Description of surgery: Patient was brought to the stereotactic room and placed in the stereotactic table and the left breast was compressed. The prior clips were identified and localized using the computer. Next the skin was prepped and draped and injected with local anesthetic. The wire was placed into the breast and the wire was deployed and the needle was removed. Next the second lesion was targeted and a wire was placed into it in the same fashion. Patient was brought to the operating room and general anesthesia was induced. The left breast and axilla were prepped and draped in usual sterile fashion. 5 cc of Lymphazurin was injected in the retroareolar space followed by 5 cc of saline. Massage was undertaken. Next the breast was reprepped and draped in the usual sterile fashion. A curvilinear incision was made in the axilla and deepened to the axillary fascia which was divided. Neoprobe was used to identify a nuclear lymph node which was also blue. It was dissected free using clips and scissors. It was sent for pathology. The 10-second count was over 1800. There were no further blue or palpable lymph nodes in the axilla and there were no other radioactive signals. The axilla was irrigated and suctioned dry and packed. Next attention was paid to the left breast. A curvilinear incision was marked between the 2 wires. It was injected with local anesthetic and then incised with a scalpel. Flaps were raised on either side. Each mass was circumferentially dissected free using electrocautery dissection and marked with a short stitch superior and long stitch lateral. Electrocautery was used to maintain hemostasis. The cavity was irrigated and suctioned dry. X-rays of the specimens show that both clips and wires were removed in their entirety. The axillary lymph node came back negative for macrometastasis. The axillary tissue was closed with interrupted 3-0 Vicryl sutures. The skin was closed with interrupted 3-0 Vicryl sutures and a running 4-0 Monocryl suture. Dermabond was applied. Next the breast incision was closed with interrupted 3-0 Vicryl sutures and a running 4-0 Monocryl suture. Dermabond was applied. The patient was woken and taken PACU in stable condition tolerated the procedure well. Surgical Findings: Synoptic Portion: Element Response Options Operation performed with curative intent. Yes Tracer(s) used to identify sentinel nodes in the upfront surgery (non-neoadjuvant) setting (select all that apply). Dye and radiotracer Tracer(s) used to identify sentinel nodes in the neoadjuvant setting (select all that apply). N/A All nodes (colored or non-colored) present at the end of a dye-filled lymphatic channel were removed. Yes All significantly radioactive nodes were removed. Yes All palpably suspicious nodes were removed. Yes Biopsy-proven positive nodes marked with clips prior to chemotherapy were identified and removed. N/A Complications Complications: No Admit VTE Documentation VTE Mechan Device Prophylaxis: SCD's
--- NOTE | 2025-07-27 13:27 | DCINST_ITS ---
Discharge Instructions
--- NOTE | 2025-07-27 13:27 | EX.PCM.DISCH ---
Discharge Instructions Diet Discharge Diet: Light diet - advance as tolerated Activity Discharge Activity: May Not Drive (for 2-3 days or while taking narcotic pain medications.) and May Shower May shower in (days): 1 Lifting Restrictions: 15 pounds for 1 week Dressing / Incision Call your doctor if your incision/area has: Continuous Slow Oozing, Sudden Increased Bleeding, Increased Pain/ Swelling, Increased Redness, Foul Smelling Discharge and Swelling at the incision site Call your doctor if you observe: Fever of 101 or Higher Suture Line Care: Avoid Pulling/Pushing and Avoid Pinching/Bending Cleanse incision/area with: Soap & Water Additional Dressing/Incision Instructions:: Remove bulky dressing tomorrow. Wear tight fitting bra for support for the first week Follow Up Care Please Follow Up With: Miko Trevizo MD When: Please call to schedule 2 week follow up appointment. [phone] Test Results: Test results from this visit will be discussed in further detail at your follow-up appointment, if applicable. Discharge Plan Admission Attending Provider: Miko Trevizo Primary Care Provider: Zaid Enamorado Consulting Providers: Lizette Bullock Instructions Print Language: Hong Konger Discharge Orders/Prescriptions Prescriptions: New oxycodone 5 mg Tablet 5 - 10 mg PO Q4H PRN PRN (Reason: Pain Score 4-10) 5 Days Qty: 20 0RF No Action carboxymethylcellulose sodium [TheraTears] 1 % dropperette,gel 1 drp OPHTHALMIC 4-8XD PRN (Reason: dry eye(s)) levothyroxine 50 mcg tablet 50 mcg PO QDAY cetirizine 10 MG capsule 10 mg PO DAILY multivitamin with folic acid 1 TABLET tablet 1 tab PO DAILY fluticasone propionate [Flonase Allergy Relief] 50 mcg/actuation spray,suspension 1 spray INTRANASAL Q12H PRN (Reason: allergies) Patient Comments: used as needed cholecalciferol (vitamin D3) [Vitamin D3] 10 mcg (400 unit) capsule 10 mcg PO MOWEFR Referrals / Follow Up: Zaid Enamorado MD [Primary Care Provider, Family Practice] Disposition Disposition (needs filled in before D/C Order can be placed): Home, Self Care
[2025-07-27] MEDS: fentaNYL 100 MCG/2 ML Ampul 200 MCG IV (13:33)
--- NOTE | 2025-07-27 14:20 | POSTOP.ANE_ITS ---
Anesthesia: Postop Eval I
--- NOTE | 2025-07-27 14:20 | PCM.POST.ANE ---
Anesthesia: Postop Eval I Current Vital Signs Temperature: 98 F Pulse Rate: 66 Blood Pressure: 138/80 Respiratory Rate: 18 Pulse Ox: 98 Assessment Airway patent: Yes Spontaneous unlabored respirations: Yes nausea: No Vomiting: No Anesthesia Complication: No Fluid Hydration Crystalloid volume administer (ml): 1,000 Total IV fluid infused: 1,000 Progress Note Anesthesia document: Postop Eval 1 completed: Yes
--- NOTE | 2025-07-27 14:40 | POSTOPAN2_ITS ---
Anesthesia Postop Eval I Sum
--- NOTE | 2025-07-27 14:40 | PCM.POSTANE2 ---
Anesthesia Postop Eval I Sum Postop Eval Completion status Anesthesia document: Postop Eval 1 completed: Yes Anesthesia Postop Eval I Summary Anesthesia Postop Eval I Summary: Anesthesia Postop Eval I: Assessment Summary Airway patent Yes 07/27/25 14:20 INSPECTOR PACKER GLASS CONTAINER.CSIR Spontaneous unlabored Yes 07/27/25 14:20 INSPECTOR PACKER GLASS CONTAINER.CSIR respirations Mental status nausea No 07/27/25 14:20 INSPECTOR PACKER GLASS CONTAINER.CSIR Vomiting No 07/27/25 14:20 INSPECTOR PACKER GLASS CONTAINER.CSIR Anesthesia Postop Eval I: Fluid Summary Crystalloid volume administer 1,000 07/27/25 14:20 INSPECTOR PACKER GLASS CONTAINER.CSIR (ml) Colloids volume administered ( ml) Blood Product volume administered (ml) Total IV fluid infused 1,000 07/27/25 14:20 INSPECTOR PACKER GLASS CONTAINER.CSIR Anesthesia Postop Eval I: Summary Notes Anesthesia Complication No 07/27/25 14:20 INSPECTOR PACKER GLASS CONTAINER.CSIR Anesthesia Complication Comment: Post-operative progress note Anesthesia: Postop Eval II Evaluation Mental status: Awake Pain Level: 0 nausea: No Vomiting: No
== END 2025-07-27 16:35 | disposition home or self-care (01) ==
LOC: SDC 09:07 → AC 09:08
PROVIDERS: PCP Family Medicine; Referring Provider Surgery; Visit Provider Surgery
PROC: 0HBV0ZZ Excision of Bilateral Breast, Open Approach (ICD-10-PCS; CPT 19302; principal; 2025-07-27 11:15)
DX: C50.212 Malignant neoplasm of upper-inner quadrant of left female breast (principal); I10 Essential (primary) hypertension; E03.9 Hypothyroidism, unspecified; Z79.890 Hormone replacement therapy; D24.2 Benign neoplasm of left breast
CPT/HCPCS: 19301; 38525; 19283; 19284; 00404; 19281; 19282; 38792; 76098; 88307; 88331; 88341; 88342; A4648; A9520; J2405; Q9968

== ENCOUNTER → 2025-09-04 | Outpatient (CLI) | payer OTHER, SELFPAY ==
--- NOTE | 2025-09-04 08:19 | BD_ITS ---
PROCEDURE: DEXA BONE DENSITY STUDY 09/04/2025 REASON FOR EXAM: POSTMENOPAUSAL F, age 64 y/o . Postmenopausal. TECHNIQUE: Procedure Code: BDDBD Modality: DX Procedure: DEXA BONE DENSITY STUDY COMPARISON: None FINDINGS: BMD and T-SCORES Lumbar spine: 0.963 g/cm2, T-score -1.3 Levels: L1 through L4 Left femoral neck: 0.717 g/cm2, T-score -1.2 Femoral neck comparison data not recommended for monitoring change. Left total hip: 0.855 g/cm2, T-score -0.7 . Right femoral neck: 0.703 g/cm2, T-score -1.3 Femoral neck comparison data not recommended for monitoring change. Right total hip: 0.833 g/cm2, T-score -0.9 The World Health Organization has defined the following categories based on bone density: Normal bone density: T-score equal to or greater than -1.0 Osteopenia: T-score between -1.0 and -2.5 Osteoporosis: T-score equal to or less than -2.5 FRAX (or Comparable) Fracture Risk Assessment: 10 Year Probability of Fracture: Major Osteoporotic Fracture: 8.2% Hip Fracture: 0.7% (Note: FRAX is not to be reported in setting of normal range bone density, osteoporosis on DEXA, known history of osteoporosis, prior osteoporotic hip or vertebral fracture, or for any patient undergoing pharmacological treatment for bone loss.) The National Osteoporosis Foundation (NOF) recommends pharmacological treatment for patients with a FRAX 10-year risk of 3% or higher for a hip fracture, or 20% or higher for a major osteoporotic fracture, to prevent osteoporosis and reduce fracture risk. The patient does meet the pharmacological treatment recommendations for prevention of osteoporosis. BD/Dexa Bone Density Study IMPRESSION: OSTEOPENIA. Recommend follow-up as clinically warranted. Reading Location: [place] [address]
== END | disposition home or self-care (01) ==
LOC: OPBD 08:13
PROVIDERS: PCP Family Medicine; Referring Provider Nurse Practitioner Women's Health; Visit Provider Nurse Practitioner Women's Health
DX: Z78.0 Asymptomatic menopausal state (principal)
CPT/HCPCS: 77080